=== PATIENT | female | born 2000 | race Caucasian/White ===

== ENCOUNTER 2019-11-21 07:01 | Emergency (ER) | payer OTHER, SELFPAY ==
[2019-11-21 07:05] VITALS: BP 107/62; PULSE 77; RESP 14; TEMP 36.9; O2SAT 98; BMI 27.4
--- NOTE | 2019-11-21 07:27 | DI.US.S_ITS ---
PROCEDURE: US OB LIMITED INDICATIONS: CRAMPING, SPOTTING OUTSIDE/PRIOR DATING DATA: Last menstrual period (LMP): 07/18/19. LMP-based estimated date of delivery (GI): 04/23/20. First dating scan (date and location): 11/21/19, this study. Estimated date of delivery (GI) from first dating scan: 04/28/20. TECHNIQUE: Real-time scanning was performed of the fetus, with image documentation. Endovaginal scanning: Not needed. COMPARISON: None. FINDINGS: A single living intrauterine gestation is present. Presentation: Breech. Placenta: Placental position is posterior, without previa. Amniotic fluid index: 13.6 cm, normal range is 5-24 cm. heart rate: 147 beats per minute. Maternal cervical canal: 3.1 cm long. Normal lower limit is 2.5 cm. Estimated gestational age from this scan: BPD is 3.8 cm which correlates with a gestational age of 17 weeks 4 days, and the head circumference is 14.0 cm correlated with 17 weeks 2 days. The abdominal circumference measures up to 12.4 cm, correlated with a gestational age of 18 weeks 0 days, and the femur length of 2.2 cm correlates with 16 weeks 3 day gestational age. The composite gestational age from today's 17 weeks 2 days and estimated weight is 190 g, at the 12th percentile. IMPRESSION: Single living intrauterine gestation with no evidence of placental abruption or placenta previa. No perigestational hemorrhage is found. Followup anatomic survey at 20 weeks gestation is recommended. Dictated by: Jered Chavarria M.D. on 11/21/2019 at 9:00 Approved by: Jered Chavarria M.D. on 11/21/2019 at 9:03
--- NOTE | 2019-11-21 07:32 | ED.FEMALEGU ---
HPI - Female Genitourinary General Chief complaint: Urogenital-Female Stated complaint: spotting/ cramping- 17 weeks preg Time Seen by Provider: 11/21/19 07:21 Source: patient Mode of arrival: Ambulatory Limitations: no limitations History of Present Illness HPI Narrative: The patient is a 19-year-old female who is for the 1st time. She is 17 weeks . She states that she developed spotting and cramping and came into the emergency department to be checked. She denies that she has any other problems or complaints. She denies any fall injury or trauma. She denies any backache. She has dizziness only after she has been lying down for a long period of time and stands up suddenly. She describes her dizziness as being slightly lightheaded. She has had no heavy bleeding no fever chills or sweats. She has nausea and vomiting in the morning. She denies any significant pain or discomfort. She used of a deep but does not drink alcohol. She has had intermittent headaches no nasal drainage sinus congestion or sore throat. She denies any chest pain shortness of breath or cough. She has had no diarrhea change in bowel habits and no urinary symptoms frequency or urgency at this time. Related Data Allergies Allergy/AdvReac Type Severity Reaction Status Date / Time No Known Drug Allergies Allergy Verified 11/21/19 07:29 Review of Systems Review of Systems Narrative: All review of systems were negative except for those mentioned in history of present illness. Patient History alcohol intake frequency: 0-2 drinks per day Substance Use Type: does not use Exam Narrative Exam Narrative: PHYSICAL EXAM: CONSTITUTIONAL: Awake, Alert, Oriented, Coherent, Cooperative in NAD. Does not appear toxic or ill. HEAD: AT/NC EENT: PERRL, FROM of eyes, no discharge, no nystagmus No epistaxis or nasal drainage Oral mucosa is moist and pink, posterior pharynx is without erythema or exudate. NECK: Supple, no obvious JVD, Trachea is midline without stridor, no palpable LN or masses. SPINE: No gross deformity, no palpable tenderness of the cervical, thoracic, lumbar or sacral spine. No CVA tenderness. THORAX: No deformity, retractions, chest wall tenderness, subcutaneous air or crepitice. LUNGS: Clear with symmetrical breath sounds without respiratory distress HEART: Normal heart tones, regular rhythm and rate without murmur. ABDOMEN: Soft, non-tender, normal bowel sounds without guarding, rebound, rigidity or palpable mass or organomegaly. EXTREMITIES: No edema, cyanosis, deformity or tenderness. SKIN: No rash, bruising, petechiae or purpura. NEURO: Awake, alert, oriented, conversive, cranial nerves II-XII are symmetrical and normal, moves all 4 extremities and is ambulatory Initial Vital Signs Initial Vital Signs: Vital Signs Temperature 98.4 F 11/21/19 07:05 Pulse Rate 77 11/21/19 07:05 Respiratory Rate 14 11/21/19 07:05 Blood Pressure 107/62 11/21/19 07:05 Pulse Oximetry 98 11/21/19 07:05 Course Course Course Narrative: 0745 ultrasound reported that the patient has a normal 17 week baby in utero without any problems or complications. There was no abruptio or placenta previa noted. The patient's urine and laboratory chemistries remain pending. 0838: The patient's urine microscopic are pending at this time. 0911 the patient's urine is a non clean catch urine with minimal white blood cells but numerous epithelial cells and no blood seen. The patient will be discharged home to be seen in follow-up by her bonding equipment operator. The patient was told that if she develops increased vaginal bleeding she needs to return to the emergency department or increased abdominal pain. Orders Ordered: ED Orders 11/21/19 07:27 US OB limited Stat 11/21/19 07:52 ABO RH Type Stat Basic Metabolic Panel Stat Complete Blood Count AUTO DIFF Stat HCG Quantitative /Beta subunit Stat 11/21/19 08:19 Urine Microscopic Stat 11/21/19 08:46 Urine Microscopic Stat Vital Signs Vital signs: Vital Signs - 8 hr 11/21/19 07:05 Temperature 98.4 F Pulse Rate 77 Respiratory Rate 14 Blood Pressure 107/62 Pulse Oximetry 98 MDM - Female Genitourinary Lab Data Result diagrams: 11/21/19 07:52 11/21/19 07:52 Labs: Lab Results 11/21/19 11/21/19 11/21/19 Range/Units 07:52 07:52 07:52 WBC 10.1 (4.5-11.0) X10^3/uL RBC 3.67 L (4.0-5.2) X10^6/uL Hgb 10.8 L (12.0-16.0) g/dL Hct 31.1 L (36-46) % MCV 84.7 (80-100) fL MCH 29.5 (26-34) PG MCHC 34.9 (30-36) % RDW 13.7 (11.6-14.8) % Plt Count 229 (150-400) X10^3/uL Neut % (Auto) 71.0 (50-75) % Lymph % (Auto) 20.1 L (25-40) % [place] % (Auto) 7.0 (3-14) % Eos % (Auto) 0.8 L (2-4) % Baso % (Auto) 1.1 (0-2) % Neut # (Auto) 7200 H (3978-5543) /uL Lymph # (Auto) 2000 (7433-9379) /uL [place] # (Auto) 700 (0-900) /uL Eos # (Auto) 100 (0-450) /uL Baso # (Auto) 100 (0-100) /uL Sodium 137 (137-145) mmol/L Potassium 3.3 L (3.4-5.1) mmol/L Chloride 106 (98-107) mmol/L Carbon Dioxide 22 (22-32) mmol/L BUN 8 (7-17) mg/dL Creatinine 0.50 L (0.52-1.04) mg/dL Estimated GFR > 60.0 (>60) mL/min BUN/Creatinine Ratio 16.0 (6-22) Glucose 92 (70-100) mg/dL Calcium 9.2 (8.4-10.2) mg/dL HCG, Quant 21448 mIU/mL Urine RBC (0-5/HPF) Urine WBC (0-5/HPF) Ur Squamous Epith Cells (0-5/HPF) Urine Bacteria (None) Ur Culture Indicated? Blood Type O Positive 11/21/19 Range/Units 08:19 WBC (4.5-11.0) X10^3/uL RBC (4.0-5.2) X10^6/uL Hgb (12.0-16.0) g/dL Hct (36-46) % MCV (80-100) fL MCH (26-34) PG MCHC (30-36) % RDW (11.6-14.8) % Plt Count (150-400) X10^3/uL Neut % (Auto) (50-75) % Lymph % (Auto) (25-40) % [place] % (Auto) (3-14) % Eos % (Auto) (2-4) % Baso % (Auto) (0-2) % Neut # (Auto) (7147-3668) /uL Lymph # (Auto) (1929-6965) /uL [place] # (Auto) (0-900) /uL Eos # (Auto) (0-450) /uL Baso # (Auto) (0-100) /uL Sodium (137-145) mmol/L Potassium (3.4-5.1) mmol/L Chloride (98-107) mmol/L Carbon Dioxide (22-32) mmol/L BUN (7-17) mg/dL Creatinine (0.52-1.04) mg/dL Estimated GFR (>60) mL/min BUN/Creatinine Ratio (6-22) Glucose (70-100) mg/dL Calcium (8.4-10.2) mg/dL HCG, Quant mIU/mL Urine RBC None seen (0-5/HPF) Urine WBC 1-5/hpf (0-5/HPF) Ur Squamous Epith Cells 10-30 /hpf H (0-5/HPF) Urine Bacteria Few (2-10) H (None) Ur Culture Indicated? Cult not indicated Blood Type Point of Care Testing Test Results Positive Urine Dip Bedside Urine Glucose Negative Bedside Urine Bilirubin - Negative Bedside Urine Ketone - Negative Urine Specific [place] 1.025 Bedside Urine Occult Blood - Negative Bedside Urine pH 6.0 Bedside Urine Protein +/- 15 Bedside Urine Urobilinogen +/- 1mg Bedside Urine Nitrite - Negative Bedside Urine Leukocytes +/- 15 Esterase Discharge Plan Departure Patient Disposition: Home Clinical Impression: Vaginal bleeding before 22 weeks gestation Discharge Date/Time: 11/21/19 09:31 Instructions: DI for Vaginal Bleeding During Activity Restrictions/Additional Instructions: You're having vaginal spotting. There's no active bleeding at this time. Your ultrasound shows a normal 17 week baby without any evidence of placental abnormality causing bleeding. You need to follow-up with your bonding equipment operator and if you develop worsening abdominal cramps fever vaginal bleeding you need to return to the emergency department otherwise need to follow up with your for bonding equipment operator. For pain and discomfort you can take Tylenol.
[2019-11-21 08:06] LABS: Add Manual Diff / Slide Review NO; Basophils Absolute Auto 100 /uL (0-100); Basophils Percent Auto 1.1 % (0-2); Eosinophils Absolute Auto 100 /uL (0-450); Eosinophils Percent Auto 0.8 % (2-4); Hematocrit 31.1 % (36-46); Hemoglobin 10.8 g/dL (12.0-16.0); Lymphocytes Absolute Auto 2000 /uL (1100-4500); Lymphocytes Percent Auto 20.1 % (25-40); Mean Corpuscular HGB Conc 34.9 % (30-36); Mean Corpuscular Hemoglobin 29.5 PG (26-34); Mean Corpuscular Volume 84.7 fL (80-100); Monocytes Absolute Auto 700 /uL (0-900); Neutrophils Absolute Auto 7200 /uL (1500-7000); Platelet Count 229 X10^3/uL (150-400); Red Blood Cell Count 3.67 X10^6/uL (4.0-5.2); Red Cell Distribution Width 13.7 % (11.6-14.8); White Blood Cell Count 10.1 X10^3/uL (4.5-11.0)
[2019-11-21 08:13] LABS: Blood Urea Nitrogen 8 mg/dL (7-17); Calcium 9.2 mg/dL (8.4-10.2); Carbon Dioxide 22 mmol/L (22-32); Chloride 106 mmol/L (98-107); Estimated Glomerular Filt Rate > 60.0 mL/min (>60); Glucose 92 mg/dL (70-100); HEMOLYSIS < 15 (0-50); Potassium 3.3 mmol/L (3.4-5.1); Sodium 137 mmol/L (137-145)
[2019-11-21 08:30] LABS: RBC Urine None Seen (0-5/HPF)
[2019-11-21 08:37] LABS: Bacteria Urine Few (2-10); Culture Indicated Urine Cult Not Indicated; Squamous Epithelial Cell Urine 10-30 /HPF (0-5/HPF); WBC Urine 1-5/HPF (0-5/HPF)
[2019-11-21 08:55] LABS: HCG Quantitative /Beta subunit 22926 mIU/mL
[2019-11-21 09:24] VITALS: BP 117/57; PULSE 81; RESP 16; O2SAT 98
== END 2019-11-21 09:31 | disposition home or self-care (01) ==
PROVIDERS: Emergency Provider Emergency Medicine
DX: O20.9 Hemorrhage in early pregnancy, unspecified (principal); Z3A.17 17 weeks gestation of pregnancy
CPT/HCPCS: 36415; 76815; 80048; 81003; 81015; 81025; 84702; 85025; 86900; 86901; 99282; 99284

== ENCOUNTER 2019-12-11 16:31 | Emergency (ER) | payer OTHER, SELFPAY ==
[2019-12-11 16:42] VITALS: BP 112/61; PULSE 74; RESP 18; TEMP 37.4; O2SAT 98; BMI 28.9
== END 2019-12-11 19:50 | disposition left against medical advice (07) ==
PROVIDERS: Emergency Provider Emergency Medicine
CPT/HCPCS: 99282

== ENCOUNTER → 2020-02-29 13:28 | Outpatient (CLI) | payer OTHER, SELFPAY ==
[2020-02-29 15:03] LABS: Hematocrit 31.1 % (36-46); Hemoglobin 11.1 g/dL (12.0-16.0)
[2020-02-29 16:19] LABS: GTT (PREG) 1 Hour PP 50gm Dose 139 mg/dL (76-139)
== END ==
PROVIDERS: PCP Family Medicine; Referring Provider Family Medicine; Visit Provider Family Medicine
DX: Z34.90 Encounter for supervision of normal pregnancy, unspecified, unspecified trimester (principal)
CPT/HCPCS: 36415; 82950; 85014; 85018; 86850; 86900; 86901

== ENCOUNTER → 2020-03-26 15:19 | Outpatient (CLI) | payer OTHER, SELFPAY | PROVIDERS: PCP Family Medicine; Visit Provider Family Medicine | DX: Z34.03 Encounter for supervision of normal first pregnancy, third trimester (principal); Z3A.34 34 weeks gestation of pregnancy | CPT/HCPCS: 87086 ==

== ENCOUNTER → 2020-04-09 12:16 | Outpatient (CLI) | payer OTHER, SELFPAY ==
[2020-04-10 15:09] LABS: Strep Grp B PCR NEG for Grp B Strep
== END ==
PROVIDERS: PCP Family Medicine; Visit Provider Family Medicine
DX: Z34.03 Encounter for supervision of normal first pregnancy, third trimester (principal); Z3A.36 36 weeks gestation of pregnancy
CPT/HCPCS: 87653

== ENCOUNTER → 2020-04-10 12:54 | Outpatient (CLI) | payer OTHER, SELFPAY ==
--- NOTE | 2020-04-10 12:56 | DI.US.S_ITS ---
PROCEDURE: US OB LIMITED INDICATIONS: DECREASED SIZE FOR DATES OUTSIDE/PRIOR DATING DATA: Last menstrual period (LMP): 07/18/19. LMP-based estimated date of delivery (GI): 04/23/20. First dating scan (date and location): 11/21/19, this study. Estimated date of delivery (GI) from first dating scan: 04/28/20. TECHNIQUE: Real-time scanning was performed of the fetus, with image documentation and biometric measurements. Endovaginal scanning: No COMPARISON: [facility], OB LIMITED, 11/21/2019, 7:42. FINDINGS: General: A single living intrauterine gestation is present. Presentation: Vertex Placenta: Placental position is posterior, without previa. Amniotic fluid index: 13.9 cm, normal range is 5-24 cm. heart rate: 140 beats per minute. Maternal cervical canal: Not well-seen. biometrics: Biparietal diameter: 37 weeks 1 day Head circumference: 37 weeks 2 days Abdominal circumference: 35 weeks Femur length: 36 weeks 1 day Estimated gestational age from initial scan: 37 weeks 3 days Composite gestational age from present scan: 36 weeks 3 days Estimated weight and percentile: 2767 g; 19 percentile Measurement variability for biometric dating: +/- 7 days from 14 weeks to 15 weeks 6 days gestation, +/- 10 days from 16 weeks to 21 weeks 6 days gestation, +/- 2 weeks from 22 weeks to 27 weeks 6 days gestation, +/- 3 weeks for 28 weeks gestation or later. weight reference: 4500 g or EFW >90/95% is considered macrosomia or large for gestational age. EFW <10% is small for gestational age. EFW 5% or less is considered intra-uterine growth restriction. Other: Not applicable. IMPRESSION: Single living IUP redemonstrated and interval growth is normal. Dictated by: Cheikh Bell [facility] Interpreted: Kenneth Hartman MD on 04/10/2020 at 16:19 Approved by: Kenneth Hartman M.D. on 04/10/2020 at 17:21
== END ==
PROVIDERS: PCP Family Medicine; Referring Provider Family Medicine; Visit Provider Family Medicine
DX: Z36.4 Encounter for antenatal screening for fetal growth retardation (principal); Z3A.36 36 weeks gestation of pregnancy
CPT/HCPCS: 76815

== ENCOUNTER 2020-04-16 14:29 | Outpatient (CLI) | payer OTHER, SELFPAY ==
--- NOTE | 2020-04-16 15:16 | P.TNLD_ITS ---
Visit Information Visit Information Date of evaluation: 04/16/20 Primary OB Provider: Bernardino Funez Reason for Evaluation: Yes non-stress test non-stress test reason: other (HR 110s in clinic with audible decel) [facility] Medical History (Updated 04/16/20 @ 15:17 by Davida Carr MD) No known health problems (Acute) Family History Father No problems noted. Mother No problems noted. Grandfather Murder Grandmother Unknown whether patient has any health problems Grandfather Unknown whether patient has any health problems Grandmother Unknown whether patient has any health problems Social History marital status: details: Catarino Briceño [phone] household members: spouse lives independently: Yes pets and animals: Yes (dog) education level: high school occupational status: employed current occupational exposures/hazards: No special leisa needs: No do you feel safe at home: Yes Smoking Status: Never smoker second hand exposure: No alcohol intake: never substance use type: does not use Type(s) of exercise: walking Evaluation Evaluation Baseline heart rate: 130 Variability: Moderate (11-25) monitor accelerations: Present monitor decelerations: Absent Diagnosis, Plan/Disposition Final Diagnosis (1) Non-reassuring heart rate or rhythm affecting management of fetus: Status: Acute Plan/Disposition Plan: FHT reassuring with reactive NST and no decels. Safe for d/c home. OB Disposition: home
== END 2020-04-16 15:17 | disposition home or self-care (01) ==
LOC: OB 04-19 13:02
PROVIDERS: PCP Family Medicine; Referring Provider Family Medicine; Visit Provider Family Medicine
DX: O36.8330 Maternal care for abnormalities of the fetal heart rate or rhythm, third trimester, not applicable or unspecified (principal); Z3A.37 37 weeks gestation of pregnancy
CPT/HCPCS: 59025; G0378; G0379

== ENCOUNTER 2020-05-01 15:07 | Outpatient (CLI) | payer OTHER, SELFPAY ==
--- NOTE | 2020-05-01 15:15 | DI.US.S_ITS ---
PROCEDURE: US OB BIOPHYSICAL PROFILE INDICATIONS: MEASURING SMALL OUTSIDE/PRIOR DATING DATA: Last menstrual period (LMP): 07/18/19. LMP-based estimated date of delivery (GI): 04/23/20. First dating scan (date and location): 11/21/19. Estimated date of delivery (GI) from first dating scan: 04/28/20. TECHNIQUE: Real-time scanning was performed of the fetus for biophysical profile, with image documentation. Color and pulse Doppler interrogation was also performed of the umbilical artery near its insertion into the placenta. Endovaginal scanning: Not needed for this study COMPARISON: None. FINDINGS: General: A single living intrauterine gestation is present. Presentation: Vertex. Placenta: Placental position is posterior, without previa. Amniotic fluid index: 9.8 cm, normal range is 5-24 cm. heart rate: 130 beats per minute. Maternal cervical canal: 2.8 cm long. Normal lower limit is 2.5 cm. Biophysical profile: Tone: 2 points. Movement: 2 points. Respiration: 2 points. Largest pocket of fluid: 2 points. IMPRESSION: Single living intrauterine gestation, vertex presentation, with posterior placenta and a normal biophysical profile was performed yielding 8 of 8 possible points. The delivery date has been projected to be centered on 04/28/20-term gestation. Dictated by: Jered Chavarria M.D. on 05/01/2020 at 16:50 Approved by: Jered Chavarria M.D. on 05/01/2020 at 16:53
--- NOTE | 2020-05-01 16:44 | P.TNLD_ITS ---
Visit Information Visit Information Date of evaluation: 05/01/20 Primary OB Provider: Barry Johnson Reason for Evaluation: Yes non-stress test [facility] Medical History (Updated 04/16/20 @ 15:17 by Davida Carr MD) No known health problems (Acute) Family History Father No problems noted. Mother No problems noted. Grandfather Murder Grandmother Unknown whether patient has any health problems Grandfather Unknown whether patient has any health problems Grandmother Unknown whether patient has any health problems Social History marital status: details: Catarino Briceño [phone] household members: spouse lives independently: Yes pets and animals: Yes (dog) education level: high school occupational status: employed current occupational exposures/hazards: No special leisa needs: No do you feel safe at home: Yes Smoking Status: Never smoker second hand exposure: No alcohol intake: never substance use type: does not use Type(s) of exercise: walking Diagnosis, Plan/Disposition Plan/Disposition Plan: G1 para 0 at 40 weeks. Sent over from the office because of decreased size for dates. ultrasound done for biophysical profile was 8/8. Amniotic fluid index was 10. Patient's NST was reactive and reassuring. Patient provided with this information. Will continue to monitor closely and go from there. She will have an appointment here to see me in 1 week.
== END 2020-05-01 16:40 | disposition home or self-care (01) ==
LOC: LABOR 15:57 → OB 05-02 14:47
PROVIDERS: PCP Family Medicine; Referring Provider Family Medicine; Visit Provider Family Medicine
DX: O36.5930 Maternal care for other known or suspected poor fetal growth, third trimester, not applicable or unspecified (principal); Z3A.40 40 weeks gestation of pregnancy
CPT/HCPCS: 59025; 59050; 76819; G0378; G0379

== ENCOUNTER 2020-05-07 14:32 | Outpatient (CLI) | payer OTHER, SELFPAY ==
--- NOTE | 2020-05-07 15:04 | PM.OBTRLD ---
Visit Information Visit Information Date of evaluation: 05/07/20 Primary OB Provider: Barry Johnson Reason for Evaluation: Yes non-stress test Comments/Additional reasons for admission: 19-year-old G1 para 041 weeks gestational age for NST. NST is reactive vital signs are stable. Patient on schedule for induction later this week. [facility] Medical History (Updated 04/16/20 @ 15:17 by Davida Carr MD) No known health problems (Acute) Family History Father No problems noted. Mother No problems noted. Grandfather Murder Grandmother Unknown whether patient has any health problems Grandfather Unknown whether patient has any health problems Grandmother Unknown whether patient has any health problems Social History marital status: details: Catarino Briceño [phone] household members: spouse lives independently: Yes pets and animals: Yes (dog) education level: high school occupational status: employed current occupational exposures/hazards: No special leisa needs: No do you feel safe at home: Yes Smoking Status: Never smoker second hand exposure: No alcohol intake: never substance use type: does not use Type(s) of exercise: walking Diagnosis, Plan/Disposition Plan/Disposition Plan: Forty-one week age infant here for NST with mom. NST is reactive. Doing well. Patient on schedule for induction later this week. OB Disposition: home
== END 2020-05-07 15:11 | disposition home or self-care (01) ==
LOC: LABOR 14:40 → OB 05-08 14:02
PROVIDERS: PCP Family Medicine; Referring Provider Family Medicine; Visit Provider Family Medicine
DX: O48.0 Post-term pregnancy (principal); Z3A.41 41 weeks gestation of pregnancy
CPT/HCPCS: 59025; G0378; G0379

== ENCOUNTER 2020-05-10 18:08 | Inpatient (IN) | payer OTHER, SELFPAY ==
[2020-05-10] MEDS: miSOPROStoL 25 MCG TABLET VAG (19:22)
[2020-05-10 19:56] VITALS: BP 127/75
[2020-05-10 20:02] LABS: Add Manual Diff / Slide Review NO; Basophils Absolute Auto 100 /uL (0-100); Basophils Percent Auto 1.3 % (0-2); Eosinophils Absolute Auto 100 /uL (0-450); Eosinophils Percent Auto 0.7 % (2-4); Hematocrit 34.3 % (36-46); Lymphocytes Absolute Auto 1900 /uL (1100-4500); Lymphocytes Percent Auto 19.2 % (25-40); Mean Corpuscular Hemoglobin 30.2 PG (26-34); Mean Corpuscular Volume 86.3 fL (80-100); Monocytes Absolute Auto 600 /uL (0-900); Monocytes Percent Auto 5.5 % (3-14); Neutrophils Absolute Auto 7300 /uL (1500-7000); Neutrophils Percent Auto 73.3 % (50-75); Platelet Count 166 X10^3/uL (150-400); Red Blood Cell Count 3.97 X10^6/uL (4.0-5.2)
[2020-05-10 20:04] LABS: COVID19 -Nasal RAPID Negative (Negative)
--- NOTE | 2020-05-11 07:38 | PM.OBHP.1 ---
OB HPI Date/Time Date of admission: 05/10/20 Date Patient Seen: 05/11/20 Time Patient Seen: 07:25 History of Present Condition Chief complaint: Obs : 1 Para: 0 Estimated Date of Delivery: 05/01/20 Estimated Gestational Age (weeks): 41w3d Narrative: Xiao Briceño is a 19 year old at 41 weeks and 3 days here for postdates induction. She came in last night and received one dose of Cytotec but was maria dolores too frequently for subsequent doses the rest of the night. This morning she feels cramping. Denies leaking or bleeding and reports good movement. Patient transferred care from the [facility] at 28 weeks. was complicated by a borderline nuchal translucency on second trimester US. She was seen by MFM and had a normal quad screen and reassuring follow up US. No further work up recommended. otherwise uncomplicated. is in the [place] and away on a boat until next year. Indications Indication for induction OB: post dates History of Present care: good care, initiated at week # (8) and pounds weight gain (25) Dating criteria: based on 1st trimester US only Ultrasounds: abnormal US findings (Borderline nuchal translucency, seen by MFM, normal quad, no further work up. Subsequent imaging normal. ) Obstetrical complications: none Medical complications: none Preadmission Labs Blood type: O (+) positive -: Antibody screen: negative, Cystic fibrosis screen: negative, GBS status: negative, HBsAG: negative, HIV: negative and RPR/VDLR: negative -: Chlamydia screen: not detected and Gonorrhea screen: not detected -: Rubella: immune and Varicella: not immune HCT: 33.8 HCAB: negative Quad screen: Normal Urine: Negative 1 hr GTT: 122 Evaluation Evaluation Baseline heart rate: 130 Variability: Moderate (11-25) monitor accelerations: Present monitor decelerations: Late Uterine Contraction Intensity: Mild Category of Tracing: II Cervical dilation (cm): 2 Cervical effacement (%): 80 station: -2 Laboratory results: Laboratory Tests 05/10/20 05/10/20 05/10/20 19:00 19:10 19:40 WBC 10.0 RBC 3.97 L Hgb 12.0 Hct 34.3 L MCV 86.3 MCH 30.2 MCHC 35.0 RDW 14.0 Plt Count 166 Neut % (Auto) 73.3 Lymph % (Auto) 19.2 L [place] % (Auto) 5.5 Eos % (Auto) 0.7 L Baso % (Auto) 1.3 Neut # (Auto) 7300 H Lymph # (Auto) 1900 [place] # (Auto) 600 Eos # (Auto) 100 Baso # (Auto) 100 COVID-19 PCR Negative Blood Type O Positive Antibody Screen Negative [facility] Medical History No known health problems (Acute) Family History Father No problems noted. Mother No problems noted. Grandfather Murder Grandmother Unknown whether patient has any health problems Grandfather Unknown whether patient has any health problems Grandmother Unknown whether patient has any health problems Social History marital status: details: Catarino Briceño [phone] household members: spouse lives independently: Yes pets and animals: Yes (dog) education level: high school occupational status: employed current occupational exposures/hazards: No special leisa needs: No do you feel safe at home: Yes Smoking Status: Never smoker second hand exposure: No alcohol intake: never substance use type: does not use Type(s) of exercise: walking Meds Home Medications and Allergies Home Medications Medication Instructions Recorded Confirmed Type prenat.vits,chata,vtn-opap-rbbfp 1 tab PO DAILY 02/06/20 05/10/20 History Allergies Allergy/AdvReac Type Severity Reaction Status Date / Time No Known Drug Allergies Allergy Verified 05/07/20 13:57 Review of Systems Review of Systems ROS: Yes All systems reviewed with the patient and are negative except as otherwise documented Exam Vital Signs (past 8 hours): Temperature 36.5? blood pressure 142/88 heart rate 64 Const General: healthy appearing and comfortable [facility] Head: normal to inspection Ears: hearing grossly normal bilaterally Nose: external nose normal Face and sinus: normal facial exam Mouth: oral mucosae normal Eyes General: appearance normal, both eyes and all related structures Neck Neck: normal visual inspection Resp Effort & Inspection: normal respiratory effort Auscultation: clear to auscultation bilaterally Cardio Rate: regular rate Rhythm: regular rhythm Heart Sounds: no murmurs GI Other: Gravid External Female Exam: normal external appearance Manual OB Exam: dilated 2, effaced 75% and station -2 Presentation: vertex Estimated Weight (lbs): 7 Back/Spine/Pelvis Back: normal to inspection Skin General: no rashes or lesions noted Extrem General: normal to inspection and no pedal edema Objective Labs Result Diagrams: 05/10/20 19:40 Labs: Laboratory Results - last 24 hr 05/10/20 05/10/20 05/10/20 19:00 19:10 19:40 WBC 10.0 RBC 3.97 L Hgb 12.0 Hct 34.3 L MCV 86.3 MCH 30.2 MCHC 35.0 RDW 14.0 Plt Count 166 Neut % (Auto) 73.3 Lymph % (Auto) 19.2 L [place] % (Auto) 5.5 Eos % (Auto) 0.7 L Baso % (Auto) 1.3 Neut # (Auto) 7300 H Lymph # (Auto) 1900 [place] # (Auto) 600 Eos # (Auto) 100 Baso # (Auto) 100 COVID-19 PCR Negative Blood Type O Positive Antibody Screen Negative Assessment and Plan Assessment and Plan Assessment and Plan narrative: 19 year old at 41 weeks and 3 days gestation here for IOL for postdates. Received one dose of Cytotec overnight. SVE 2/80/-2 with Figueroa score of 7 this morning. Patient is maria dolores spontaneously over 5 minutes. There was a 90 second deceleration immediately following cervical exam which resolved position change. Plan - Pitocin per protocol - No indication for GBS prophylaxis - Epidural upon request
[2020-05-11] MEDS: LACTATED RINGERS 1,000 ML 100 ML IV ×3 (08:38→14:28)
[2020-05-11] MEDS: OXYTOCIN PREMIX 30 UNIT/500 ML PLAST..BAG IV (08:38)
[2020-05-11] MEDS: FENT 2MCG/ML BUPIV 0.125% EPI 200 MCG/100 ML PLAST..BAG 8 MCG EPIDURAL (13:14)
--- NOTE | 2020-05-11 13:36 | PM.OBPNLAB ---
Date/Time Date Patient Seen: 05/11/20 Time Patient Seen: 13:30 Pain Control Pain control: epidural Comments: Getting comfortable with epidural. Had leaking prior to contractions increasing in intensity about 45 min ago. Pelvic Exam Dilation (cm): 4 Effacement (%): 90 station: -1 Amniotic membrane status: Leaking Contractions Pitocin rate (mU/min): 4 Contraction frequency (min): 4 Contraction pattern: Regular Contraction intensity: Strong/Firm Status status: Category ll Heart Rate Baseline: 140 Monitor Accelerations: Present Monitor Decelerations: Early (Early and variable) Monitor Variability: Moderate Assessment and Plan Assessment: active labor Plan: continuous present management Comments: Continue pitocin. Comfortable with epidural.
--- NOTE | 2020-05-11 15:00 | PM.OBPNLAB ---
Date/Time Date Patient Seen: 05/11/20 Time Patient Seen: 02:50 Pain Control Pain control: tolerating well Pelvic Exam Dilation (cm): 5 Effacement (%): 100 station: -1 Amniotic membrane status: Leaking Contractions Pitocin rate (mU/min): 4 Contraction frequency (min): 4 Contraction pattern: Regular Contraction intensity: Strong/Firm Status status: Category ll Heart Rate Baseline: 145 Monitor Accelerations: Absent Monitor Decelerations: Variable (Recurrent) Monitor Variability: Moderate Assessment and Plan Assessment: active labor Plan: continuous present management Comments: IUPC placed for amnioinfusion due to recurrent variables. Discussed possible need for if variables do not improve. Suspect OT position of fetus. Encouraged frequent position changes if tolerated.
--- NOTE | 2020-05-11 17:01 | PM.OBPNLAB ---
Date/Time Date Patient Seen: 05/11/20 Time Patient Seen: 17:02 Pain Control Pain control: tolerating well and epidural Pelvic Exam Dilation (cm): 6 Effacement (%): 100 station: -1 Amniotic membrane status: Leaking Contractions Pitocin rate (mU/min): 6 Contraction frequency (min): 3 Contraction pattern: Regular Contraction intensity: Strong/Firm Intrauterine tone measurement: 175 Status status: Category ll Heart Rate Baseline: 130 Monitor Accelerations: Present Monitor Decelerations: Early Monitor Variability: Moderate Assessment and Plan Assessment: induction ongoing Plan: continuous present management Comments: Variables improved with amnioinfusion and patient is making cervical change. Will continue pitocin and re-evaluate in 2 hours or sooner if needed. MVU 175-200. Titrate pitocin as able.
--- NOTE | 2020-05-11 19:57 | P.PCNOB_ITS ---
Labor & Delivery Delivery date: 05/11/20 Cervical ripening method: per misoprostal protocol Induction method: per pitocin protocol Delivery monitor: external FHT and internal uterine Route of delivery: L&D Laceration Description: Periurethral - 1st Degree and Perineal - 1st Degree Delivery repair: vicryl Estimated blood loss (mL): 300 Anesthesia type: Epidural Narrative: Patient is a 19-year-old at 41 weeks and 3 days gestation who gave on 05/11/20 at 7:21 PM. GI: 05/01/20 STAGE I: Labor Patient was brought in the night of 05/10/20 for post-dates induction. She received 1 dose of Cytotec then was maria dolores on her own. The morning of 05/11/20 she started Pitocin per protocol. Spontaneous rupture membranes occurred at 12:28 with a small amount of clear fluid. Patient received an epidural with adequate pain control. There were recurrent variable decelerations throughout stage I that did not resolve with position change or IV fluid bolus.. The decision was made to place an IUPC for amnioinfusion when patient was 5 cm. Variables resolved after amnioinfusion. Patient was continued on Pitocin and progressed to complete at 18:56. Pain well controlled with epidural throughout stage I. STAGE II: Delivery Patient was complete and pushed over 2 contractions to deliver a vigorous male at 7:21 p.m.. Infant was vertex and CLAUDIA. There was terminal meconium. After delivery was immediately placed on mother's abdomen. Cord was clamped and cut after 1 minute delay. Apgars were 9 and 9. No resuscitation of the required. STAGE III: Placenta/Cord Placenta delivered at 19:28 after active management and appeared intact with a three-vessel cord. Pitocin bolus given after delivery of placenta. New first degree periurethral laceration was repaired with 4-0 Vicryl in the usual fashion. A first degree perineal laceration was repaired as well. Fundus was firm well below the umbilicus after delivery. EBL: 300 mL. Needle and sponge counts were correct. The vagina was inspected and no items were left in situ. Patient was doing well with Fernando, her and mother at bedside. [place] Baby 1: Infant gender: Male Presentation: vertex Placenta delivery description: Spontaneous cord vessel description: 3 Vessels score (1 min): 9 score (5 min): 9
[2020-05-11] MEDS: IBUPROFEN 600 MG TABLET PO (21:17)
[2020-05-12 06:11] LABS: Hematocrit 31.4 % (36-46); Hemoglobin 10.7 g/dL (12.0-16.0)
[2020-05-12] MEDS: IBUPROFEN 600 MG TABLET PO (09:21)
[2020-05-12] MEDS: DOCUSATE 100 MG CAPSULE PO (09:22)
[2020-05-12] MEDS: PRENATAL VIT,CALC/IRON/FOLIC 1 TABLET 1 TAB PO (09:22)
--- NOTE | 2020-05-12 09:56 | P.DS_ITS ---
Discharge Providers Provider Date of admission: 05/10/20 18:08 Discharge Date: 05/12/20 Primary care physician: Kristian Baker Consults: 05/12/20 19:[address] to [address] Packer Operator Routine Comment: Discharge provider: Mima Munoz DO Summary Hospital Course Date Patient Seen: 05/12/20 Time Patient Seen: 09:15 Procedures: Spontaneous vaginal delivery Epidural analgesia Hospital Course: Patient is a 27-year-old after spontaneous vaginal delivery on 05/11/20 at 41 weeks and 3 days gestation. Patient came in for post-dates induction and progressed after Cytotec and Pitocin. Patient received an epidural with excellent pain control. Labor was complicated by recurrent variable decelerations which resolved with amnio infusion. Delivery was uncomplicated and she delivered a vigorous male over 2 contractions. A first degree periurethral laceration and first-degree perineal laceration were repaired with good hemostasis. patient did very well. Bleeding was light to moderate. Pain controlled with ibuprofen. Patient was eating, ambulating, voiding and passing flatus. She wishes to bottle feed. Infant was doing very well without concerns. Patient was advised to call for fevers, severe pain or bleeding through more than a pad an hour. She will follow up in clinic Dr. Johnson in 6 weeks. Peripartum Data Delivery Method: Natural Vaginal Laceration description: Periurethral - 1st Degree complications: none 1: Gender: Male Disposition of : home Discharge Diagnosis (1) Spontaneous vaginal delivery: Status: Acute (2) 41 weeks gestation of : Status: Acute Status at Discharge Functional status at discharge: independent ambulation Overall status at discharge: patient is progressing back to baseline Time Spent with Patient Time attestation: Total time spent providing and/or coordinating discharge servi edward: Time spent: Less than 30 minutes Objective Labs Result Diagrams: 05/12/20 06:00 Labs: Laboratory Results - last 24 hr 05/12/20 06:00 Hgb 10.7 L Hct 31.4 L Exam Vital Signs (past 8 hours): Temperature 99.6? blood pressure 133/86 heart rate 80 respirations 17 Narrative Exam Narrative: General: Awake and alert, no acute distress. HEENT: NCAT, EOMI, moist oral mucosa CV: Regular rate and rhythm, no murmurs, rubs or gallops Lungs: CTAB, no wheezes, rales, or rhonchi Abdomen: Soft, nontender; bowel tones active; uterus firm 1 cm below umbilicus Extremities: Warm, no edema, 2+ pedal pulses bilaterally Discharge Plan Discharge Plan Patient Disposition: Home Discharge comment: Patient advised to call for fevers, severe pain or bleeding through more than a pad an hour. Discharge orders & Medications Prescriptions: New docusate sodium [DOK] 100 mg Capsule 100 mg PO DAILY Qty: 30 RF: 0 ibuprofen 600 mg Tablet 600 mg PO Q6HR PRN (Reason: Pain, Mild (1-3)) Qty: 30 RF: 0 Continued prenat.vits,chata,[id number] Tablet 1 tab PO DAILY RF: 0 Follow up/Referrals: Barry Johnson MD [Physician] - 6 Weeks Kristian Baker [Primary Care Provider] - Visit Report/Discharge Packet Visit Report Forms: Patient Portal/API, Stroke Signs & Symptoms Discharge Data Primary Care Provider: Kristian Baker Attending Provider: Mima Munoz Admit Date/Time: 05/10/20 18:08
[2020-05-12 21:10] VITALS: BP 127/75; PULSE 72; RESP 18; TEMP 36.9
== END 2020-05-12 21:42 | disposition home or self-care (01) | DRG 807 ==
PROVIDERS: Admitting Provider Family Medicine; PCP Family Medicine; Referring Provider Family Medicine; Visit Provider Family Medicine
DX: O48.0 Post-term pregnancy (principal); Z37.0 Single live birth; Z3A.41 41 weeks gestation of pregnancy; O71.82 Other specified trauma to perineum and vulva; O70.0 First degree perineal laceration during delivery; O76 Abnormality in fetal heart rate and rhythm complicating labor and delivery; O77.0 Labor and delivery complicated by meconium in amniotic fluid; Z11.59 Encounter for screening for other viral diseases
CPT/HCPCS: 01967; 36415; 59050; 59200; 59410; 85014; 85018; 85025; 86850; 86900; 86901; 87635; G0379; J2590

== ENCOUNTER 2020-05-19 08:29 | Emergency (ER) | payer OTHER, SELFPAY ==
[2020-05-19 08:37] VITALS: BP 141/81; PULSE 88; RESP 18; TEMP 37; O2SAT 96; BMI 29.2
--- NOTE | 2020-05-19 09:00 | ED_ITS ---
HPI - Back Pain/Injury General Chief Complaint: Back Pain/Injury Stated Complaint: Intense pain in lower back t-2 Time Seen by Provider: 05/19/20 08:40 Source: patient Limitations: no limitations History of Present Illness HPI Narrative: CC: low back pain HPI: The patient is a 19-year-old female who is 8 days who developed low back pain that started getting worse 4 days ago. She denies any fall or injury. She had a vaginal delivery without complications. She is not having excessive bleeding nor any purulence drainage. She had an epidural injection. She has had no fever chills or sweats. Her pain and discomfort while sitting is approximately 4/10 however when she tries walking it is 7 to 8/10 in intensity. She took ibuprofen 600 mg last night none since then. Her pain is worse with walking and seems to be worse with moving and lifting her left leg. She has had no shooting pain down her legs no numbness or tingling or loss of sensation over her perineum or around her rectum. She has had no urinary retention she has incontinence of urine when walking. She has had no dysuria no diarrhea no rectal pain. She denies any other abdominal pain nausea vomiting diarrhea melena or hematochezia. She has had no urinary urgency or frequency no history of any kidney infections. She has had no fever chills or sweats. She does not smoke cigarettes drink alcohol or use any drugs including marijuana. Related Data Home Medications Medication Instructions Recorded Confirmed prenat.vits,chata,[id number] 1 tab PO DAILY 02/06/20 05/10/20 Previous Rx's Medication Instructions Recorded docusate sodium [DOK] 100 mg PO DAILY #30 cap 05/12/20 ibuprofen 600 mg PO Q6HR PRN #30 tab 05/12/20 cephalexin [Keflex] 500 mg PO TID #15 cap 05/19/20 cyclobenzaprine 10 mg PO TID PRN #15 tab 05/19/20 hydrocodone-acetaminophen [[place]] 1 tab PO Q6H PRN #12 tab 05/19/20 Allergies Allergy/AdvReac Type Severity Reaction Status Date / Time No Known Drug Allergies Allergy Verified 05/19/20 08:36 Review of Systems Review of Systems Narrative: Her review of systems were all negative except for those mentioned in the history of present illness. Patient History Medical History No known health problems (Acute) Family History Father No problems noted. Mother No problems noted. Grandfather Murder Grandmother Unknown whether patient has any health problems Grandfather Unknown whether patient has any health problems Grandmother Unknown whether patient has any health problems Social History marital status: details: Catarino Briceño [phone] household members: spouse lives independently: Yes pets and animals: Yes (dog) education level: high school occupational status: employed current occupational exposures/hazards: No special leisa needs: No do you feel safe at home: Yes Smoking Status: Never smoker second hand exposure: No alcohol intake: never substance use type: does not use Type(s) of exercise: walking Smoking Status: Never smoker alcohol intake frequency: 0-2 drinks per day Substance Use Type: does not use Exam Narrative Exam Narrative: PHYSICAL EXAM: CONSTITUTIONAL: Awake, Alert, Oriented, Coherent, Cooperative in NAD. Does not appear toxic or ill. Patient has difficulty in lifting her legs to a sitting position in the bed. She is able to sit on the edge of the bed. She appears to have difficulty in lifting her legs into the complaining primarily of back pain. HEAD: AT/NC EENT: PERRL, FROM of eyes, no discharge, no nystagmus MOUTH:Oral mucosa is moist and pink, posterior pharynx is without erythema or exudate. Is wearing a mask. NECK: Supple, no obvious JVD, Trachea is midline without stridor, no palpable LN. SPINE: Palpation of the cervical, Thoracic, spine reveals no gross deformity or tenderness. The patient has mild tenderness to palpation over the lower lumbar spine. In about L3-L4 the patient has a single puncture wound without ecchymosis erythema. This area is mildly tender. Her paraspinous muscles over the lower lumbar and sacral area are tender to palpation. There is no tenderness to palpation over the right or left sciatic notches. There appears to be more tenderness on the right SI joint compared to the left. There is no bruising appreciated. No CVA tenderness. The patient with a straight leg is able to completely flex her left leg and hip with the knee extended however complains of pain and discomfort in her back. She can perform the same maneuver on the right with less discomfort in her back. She has symmetrical sensation in both legs. Patellar deep tendon reflexes are 1+. The patient has symmetrical strength to plantar and dorsiflexion of her toes and feet bilaterally. THORAX: No deformity, retractions, chest wall tenderness. LUNGS: Clear, symmetrical breath sounds without respiratory distress. HEART: Normal heart tones, regular rhythm and rate without murmur. ABDOMEN: Soft, no guarding, rebound, rigidity or palpable mass. There is mild suprapubic tenderness over her uterus as expected. EXTREMITIES: No edema, deformity, tenderness or cyanosis. SKIN: No rash, bruising, petechiae or purpura. NEURO: Awake, alert, oriented, conversive, cranial nerves II-XII are symmetrical , moves all 4 extremities and is ambulatory. MENTAL HEALTH: Does not appear anxious or depressed. Initial Vital Signs Initial Vital Signs: Vital Signs Temperature 98.6 F 05/19/20 08:37 Pulse Rate 88 05/19/20 08:37 Respiratory Rate 18 05/19/20 08:37 Blood Pressure 141/81 H 05/19/20 08:37 Pulse Oximetry 96 05/19/20 08:37 Course Course Course Narrative: 1030: No change in pain. will give [place] 7.5/325 Orders Ordered: Discontinued Medications Hydrocodone Bitart/Acetaminophen ([place] 5/325) 2 tab PO NOW ONE Stop: 05/19/20 10:34 Last Admin: 05/19/20 10:53 Dose: 2 tab Documented by: LILA Cephalexin HCl (Keflex) 500 mg PO NOW ONE Stop: 05/19/20 10:08 Last Admin: 05/19/20 10:20 Dose: 500 mg Documented by: LILA Cyclobenzaprine HCl (Flexeril) 10 mg PO NOW ONE Stop: 05/19/20 08:59 Last Admin: 05/19/20 09:12 Dose: 10 mg Documented by: LILA Ketorolac Tromethamine (Toradol) 30 mg IV NOW ONE Stop: 05/19/20 08:59 Last Admin: 05/19/20 09:12 Dose: 30 mg Documented by: LILA Vital Signs Vital signs: Vital Signs - 8 hr 05/19/20 08:37 Temperature 98.6 F Pulse Rate 88 Respiratory Rate 18 Blood Pressure 141/81 H Pulse Oximetry 96 MDM - Back Pain/Injury Medical Records Attestation: I reviewed the patient's medical records. Lab Data Attestation: I reviewed the patient's lab results. Result diagrams: 05/19/20 09:10 05/19/20 09:10 Labs: Lab Results 05/19/20 05/19/20 05/19/20 Range/Units 09:01 09:10 09:10 WBC 8.9 (4.5-11.0) X10^3/uL RBC 4.07 (4.0-5.2) X10^6/uL Hgb 11.7 L (12.0-16.0) g/dL Hct 35.1 L (36-46) % MCV 86.1 (80-100) fL MCH 28.7 (26-34) PG MCHC 33.4 (30-36) % RDW 13.4 (11.6-14.8) % Plt Count 322 (150-400) X10^3/uL Neut % (Auto) 74.3 (50-75) % Lymph % (Auto) 17.3 L (25-40) % [place] % (Auto) 6.0 (3-14) % Eos % (Auto) 1.4 L (2-4) % Baso % (Auto) 1.0 (0-2) % Neut # (Auto) 6600 (7072-7472) /uL Lymph # (Auto) 1500 (2121-8042) /uL [place] # (Auto) 500 (0-900) /uL Eos # (Auto) 100 (0-450) /uL Baso # (Auto) 100 (0-100) /uL ESR 59 H (0-20) MM/HR Sodium 136 L (137-145) mmol/L Potassium 4.2 (3.4-5.1) mmol/L Chloride 106 (98-107) mmol/L Carbon Dioxide 24 (22-32) mmol/L BUN 12 (7-17) mg/dL Creatinine 0.59 (0.52-1.04) mg/dL Estimated GFR > 60.0 (>60) mL/min BUN/Creatinine Ratio 20.3 (6-22) Glucose 97 (70-100) mg/dL Lactate (0.7-2.1) mmol/L Calcium 9.8 (8.4-10.2) mg/dL Total Bilirubin 0.6 (0.2-1.3) mg/dL AST 34 (14-36) IU/L ALT 36 H (<35) IU/L Alkaline Phosphatase 140 H (38-126) U/L Total Creatine Kinase (30-135) U/L C-Reactive Protein 1.8 H (<1.0) mg/dL Total Protein 7.3 (6.3-8.2) g/dL Albumin 4.0 (3.5-5.0) g/dL Globulin 3.3 (1.7-4.1) g/dL Albumin/Globulin Ratio 1.2 (1.0-2.8) Urine Color Yellow Urine Appearance Slightly cloudy Urine pH 6.0 (4.5-8.0) Ur Specific [place] 1.010 (1.000-1.035) Urine Protein 1+ H (Negative) Urine Glucose (UA) Negative (Negative) g/dL Urine Ketones Negative (NEGATIVE) Urine Occult Blood 3+ H (Negative) Urine Nitrate Negative (Negative) Urine Bilirubin Negative (NEGATIVE) Urine Urobilinogen 0.2 (0.2) E.U./dL Ur Leukocyte Esterase 3+ H (NEGATIVE) Urine RBC 10-30/hpf H (0-5/HPF) Urine WBC >100/hpf H (0-5/HPF) Ur Squamous Epith Cells 0-1 /hpf D (0-5/HPF) Urine Bacteria Many (>30) H (None) Ur Culture Indicated? Specimen cultured 05/19/20 05/19/20 Range/Units 09:10 09:10 WBC (4.5-11.0) X10^3/uL RBC (4.0-5.2) X10^6/uL Hgb (12.0-16.0) g/dL Hct (36-46) % MCV (80-100) fL MCH (26-34) PG MCHC (30-36) % RDW (11.6-14.8) % Plt Count (150-400) X10^3/uL Neut % (Auto) (50-75) % Lymph % (Auto) (25-40) % [place] % (Auto) (3-14) % Eos % (Auto) (2-4) % Baso % (Auto) (0-2) % Neut # (Auto) (4098-7318) /uL Lymph # (Auto) (7364-4285) /uL [place] # (Auto) (0-900) /uL Eos # (Auto) (0-450) /uL Baso # (Auto) (0-100) /uL ESR (0-20) MM/HR Sodium (137-145) mmol/L Potassium (3.4-5.1) mmol/L Chloride (98-107) mmol/L Carbon Dioxide (22-32) mmol/L BUN (7-17) mg/dL Creatinine (0.52-1.04) mg/dL Estimated GFR (>60) mL/min BUN/Creatinine Ratio (6-22) Glucose (70-100) mg/dL Lactate 0.5 L (0.7-2.1) mmol/L Calcium (8.4-10.2) mg/dL Total Bilirubin (0.2-1.3) mg/dL AST (14-36) IU/L ALT (<35) IU/L Alkaline Phosphatase (38-126) U/L Total Creatine Kinase 68 (30-135) U/L C-Reactive Protein (<1.0) mg/dL Total Protein (6.3-8.2) g/dL Albumin (3.5-5.0) g/dL Globulin (1.7-4.1) g/dL Albumin/Globulin Ratio (1.0-2.8) Urine Color Urine Appearance Urine pH (4.5-8.0) Ur Specific [place] (1.000-1.035) Urine Protein (Negative) Urine Glucose (UA) (Negative) g/dL Urine Ketones (NEGATIVE) Urine Occult Blood (Negative) Urine Nitrate (Negative) Urine Bilirubin (NEGATIVE) Urine Urobilinogen (0.2) E.U./dL Ur Leukocyte Esterase (NEGATIVE) Urine RBC (0-5/HPF) Urine WBC (0-5/HPF) Ur Squamous Epith Cells (0-5/HPF) Urine Bacteria (None) Ur Culture Indicated? MDM Narrative Medical decision making narrative: Clinically based on the patient's physical exam I believe her pain and discomfort is primarily musculoskeletal in nature. I explained to the patient the process of the evaluation. I stated that we are going to obtain laboratory studies inflammatory markers to rule out the possibility of a urinary tract infection, arm epidural hematoma and abscess as well as endometritis. I explained to the patient that depending on the markers we may need to perform a pelvic exam. Discharge Plan Departure Patient Disposition: Home Clinical Impression: Spontaneous vaginal delivery, Strain of muscle, fascia and tendon of lower back, initial encounter Low back pain Qualifiers: Chronicity: acute Back pain laterality: bilateral Sciatica presence: without sciatica Qualified Code(s): M54.5 - Low back pain UTI (urinary tract infection) following delivery Qualifiers: urinary tract infection type: unspecified infection Qualified Code(s): O86.20 - Urinary tract infection following delivery, unspecified Discharge Date/Time: 05/19/20 11:13 Instructions: DI for Low Back Pain, DI for Urinary Tract Infection (UTI), DI for Back Strain or Sprain Activity Restrictions/Additional Instructions: 1. You need to return to the emergency department or be seen and re-evaluated by your primary care physician or manager inventory control in 48-72 hours. 2. If you develop worsening pain and discomfort in your low back with fever chills or sweats or numbness tingling loss of sensation shooting pain down your legs or your legs become weak and give out you need to return to the emergency department. 3. You need to drink 3-4 L of fluid per day. 4. Continue to take your ibuprofen as prescribed. 5. Take [place] 5/325 as a rescue medicine for severe pain and discomfort unrelieved by the cyclobenzaprine and ibuprofen since you are not breast feeding. 6. Take the Keflex as prescribed for what appears to be a urinary tract infection. 7. Take the cyclobenzaprine as a muscle relaxant for increased pain and discomfort. 8. Apply warm compresses to your back. Apply every 2 hours for 20-30 minutes. Prescriptions: New hydrocodone-acetaminophen [[place]] 5-325 mg tablet 1 tab PO Q6H PRN (Reason: pain) Qty: 12 RF: 0 cephalexin [Keflex] 500 mg capsule 500 mg PO TID Qty: 15 RF: 0 cyclobenzaprine 10 mg tablet 10 mg PO TID PRN (Reason: muscle spasm) Qty: 15 RF: 0 No Action prenat.vits,chata,[id number] Tablet 1 tab PO DAILY RF: 0 docusate sodium [DOK] 100 mg Capsule 100 mg PO DAILY Qty: 30 RF: 0 ibuprofen 600 mg Tablet 600 mg PO Q6HR PRN (Reason: Pain, Mild (1-3)) Qty: 30 RF: 0 Referrals: Kristian Baker [Primary Care Provider] -
[2020-05-19] MEDS: KETOROLAC 60 MG/2 ML VIAL 30 MG IV (09:12)
[2020-05-19] MEDS: CYCLOBENZAPRINE 10 MG TABLET PO (09:12)
[2020-05-19 09:19] LABS: Add Manual Diff / Slide Review NO; Basophils Absolute Auto 100 /uL (0-100); Eosinophils Absolute Auto 100 /uL (0-450); Eosinophils Percent Auto 1.4 % (2-4); Hematocrit 35.1 % (36-46); Hemoglobin 11.7 g/dL (12.0-16.0); Lymphocytes Absolute Auto 1500 /uL (1100-4500); Lymphocytes Percent Auto 17.3 % (25-40); Mean Corpuscular HGB Conc 33.4 % (30-36); Mean Corpuscular Hemoglobin 28.7 PG (26-34); Mean Corpuscular Volume 86.1 fL (80-100); Monocytes Absolute Auto 500 /uL (0-900); Neutrophils Absolute Auto 6600 /uL (1500-7000); Neutrophils Percent Auto 74.3 % (50-75); Platelet Count 322 X10^3/uL (150-400); Red Blood Cell Count 4.07 X10^6/uL (4.0-5.2); Red Cell Distribution Width 13.4 % (11.6-14.8); White Blood Cell Count 8.9 X10^3/uL (4.5-11.0)
[2020-05-19 09:22] LABS: Bilirubin Urine UA NEGATIVE (NEGATIVE); Color Urine UA YELLOW; Glucose Urine UA NEGATIVE (Negative); Ketones Urine UA NEGATIVE (NEGATIVE); Leukocyte Esterase Urine UA 3+ (NEGATIVE); Nitrite Urine UA NEGATIVE (Negative); Occult Blood Urine UA 3+ (Negative); Protein Urine UA 1+ (Negative); Urobilinogen Urine UA 0.2 E.U./dL (0.2)
[2020-05-19 09:23] LABS: Appearance Urine UA Slightly Cloudy
[2020-05-19 09:29] LABS: Creatine Kinase 68 U/L (30-135)
[2020-05-19 09:30] LABS: Lactate (Lactic Acid) 0.5 mmol/L (0.7-2.1)
[2020-05-19 09:31] LABS: Alanine Aminotransferase 36 IU/L (<35); Albumin Globulin Ratio 1.2 (1.0-2.8); Alkaline Phosphatase 140 U/L (38-126); Aspartate Aminotransferase 34 IU/L (14-36); BUN Creatinine Ratio 20.3 (6-22); Bilirubin Total 0.6 mg/dL (0.2-1.3); Blood Urea Nitrogen 12 mg/dL (7-17); C-Reactive Protein Quant 1.8 mg/dL (<1.0); Calcium 9.8 mg/dL (8.4-10.2); Carbon Dioxide 24 mmol/L (22-32); Chloride 106 mmol/L (98-107); Estimated Glomerular Filt Rate > 60.0 mL/min (>60); Globulin 3.3 g/dL (1.7-4.1); Glucose 97 mg/dL (70-100); HEMOLYSIS < 15 (0-50); Potassium 4.2 mmol/L (3.4-5.1); Sodium 136 mmol/L (137-145); Total Protein 7.3 g/dL (6.3-8.2)
[2020-05-19 09:39] LABS: Bacteria Urine Many (>30); Culture Indicated Urine Specimen Cultured; RBC Urine 10-30/HPF (0-5/HPF); Squamous Epithelial Cell Urine 0-1 /HPF (0-5/HPF); WBC Urine >100/HPF (0-5/HPF)
[2020-05-19 09:40] LABS: Erythrocyte Sedimentation Rate 59 MM/HR (0-20)
[2020-05-19] MEDS: cephALEXin 250 MG CAPSULE 500 MG PO (10:20)
[2020-05-19] MEDS: HYDROCODONE/ACET 5/325 TABLET 2 TAB PO (10:53)
[2020-05-19 11:07] VITALS: BP 125/76; PULSE 65; RESP 12; O2SAT 100
== END 2020-05-19 11:13 | disposition home or self-care (01) ==
PROVIDERS: Emergency Provider Emergency Medicine; PCP Family Medicine
DX: O86.20 Urinary tract infection following delivery, unspecified (principal); S39.012A Strain of muscle, fascia and tendon of lower back, initial encounter
CPT/HCPCS: 36415; 80053; 81001; 82550; 83605; 85025; 85651; 86140; 87086; 96374; 99284; J1885

== ENCOUNTER 2021-07-14 21:28 | Emergency (ER) | payer OTHER, SELFPAY ==
[2021-07-14 21:35] VITALS: BP 126/78; PULSE 96; RESP 16; TEMP 36.4; O2SAT 99
--- NOTE | 2021-07-14 22:00 | DI.US.S_ITS ---
PROCEDURE: US OB <= 14 WEEKS FETUS INDICATIONS: BLEEDING OUTSIDE/PRIOR DATING DATA: Last menstrual period (LMP): Unknown. LMP-based estimated date of delivery (GI): Not applicable. First dating scan (date and location): 07/14/21. Estimated date of delivery (GI) from first dating scan: 03/07/22. TECHNIQUE: Real-time scanning was performed of the fetus and maternal pelvic organs, with image documentation. Endovaginal scanning was also performed to better visualize the fetus and maternal ovaries. COMPARISON: None. FINDINGS: Embryo: pole is identified. A yolk sac measuring 3.5 mm and unfused amnion are seen associated with the pole. pole crown-rump length is 0.49 cm corresponding to a six week two day plus or minus four day gestation. A 2nd yolk sac is seen measuring 1.4 mm without visible pole. Heart rate: 116 beats per minute Measurement variability in dating: +/- 4 weeks by LMP, +/- 7 days by mean sac diameter (use before 6 weeks gestation if crown-rump length not able to be measured), +/- 5 days by crown-rump length (up to 8 weeks 6 days gestation), +/- 7 days by crown-rump length (up to 13 weeks 6 days gestation). Maternal organs: There is a small amount of mildly complicated periuterine fluid. The cervix is closed. Retroverted uterus contains a fundal gestational sac. There is a subchorionic hemorrhage along the fundal aspect of the sac encompassing about 50% of the sac circumference. The right ovary contains a thick walled peripherally vascular corpus luteum measuring about 2.1 cm. The left ovary is normal. IMPRESSION: 1. Single living intrauterine with crown-rump length correlating to six week two day plus or minus four days gestation and estimated due date of 03/07/22. 2. A 2nd, small yolk sac is visible without associated pole. Follow-up in 2-3 weeks to confirm single 10 or twin . 3. Inactive subchorionic hemorrhage encompassing 50% of the sac circumference. 4. Closed cervix. Dictated by: Yessi Prado M.D. on 07/14/2021 at 23:40 Approved by: Yessi Prado M.D. on 07/14/2021 at 23:47
[2021-07-14 22:13] LABS: Add Manual Diff / Slide Review NO; Basophils Absolute Auto 100 /uL (0-100); Basophils Percent Auto 0.9 % (0-2); Eosinophils Absolute Auto 100 /uL (0-450); Eosinophils Percent Auto 0.9 % (2-4); Hematocrit 33.4 % (36-46); Hemoglobin 11.3 g/dL (12.0-16.0); Lymphocytes Absolute Auto 2200 /uL (1100-4500); Lymphocytes Percent Auto 25.9 % (25-40); Mean Corpuscular HGB Conc 33.8 % (30-36); Mean Corpuscular Hemoglobin 28.9 PG (26-34); Mean Corpuscular Volume 85.6 fL (80-100); Monocytes Absolute Auto 600 /uL (0-900); Monocytes Percent Auto 6.8 % (3-14); Neutrophils Absolute Auto 5500 /uL (1500-7000); Neutrophils Percent Auto 65.5 % (50-75); Platelet Count 220 X10^3/uL (150-400); Red Cell Distribution Width 12.8 % (11.6-14.8); White Blood Cell Count 8.5 X10^3/uL (4.5-11.0)
[2021-07-14 23:04] LABS: HCG Quantitative /Beta subunit 13702 mIU/mL
--- NOTE | 2021-07-14 23:10 | ED.PREGNANCY ---
HPI - General Chief complaint: Vaginal Bleeding Stated complaint: 6 WKS BLEEDING AND CRAMPING Time Seen by Provider: 07/14/21 21:43 Source: patient Mode of arrival: Ambulatory History of Present Illness HPI Narrative: 21-year-old female nonsmoker without chronic medical problems presents with a chief complaint of a few days of lower pelvic cramping and vaginal spotting. She is a at 7 weeks (by dates) and about 6 weeks by ultrasound. Her symptoms started for 5 days ago and she presented to an outside facility where they performed lab work and an ultrasound, she was encouraged to follow-up with her doctors and return for worsening symptoms. At that time she was having bright red bleeding and now it is admittedly slowed and dark and, if not turned brown. She is not dizzy nor weak or lightheaded. She denies any chest pain or shortness of breath. She is nauseated but denies any vomiting. She denies any dysuria, frequency or urgency. Related Data Previous Rx's Medication Instructions Recorded ibuprofen 600 mg tablet 600 mg PO Q6HR PRN #30 tab 05/12/20 Allergies Allergy/AdvReac Type Severity Reaction Status Date / Time No Known Drug Allergies Allergy Verified 06/21/20 13:51 Review of Systems Review of Systems Narrative: GENERAL: Denies chills, fatigue, malaise, fever, sweats. HEENT: Denies sinus pain, ear pain, sore throat, difficulty swallowing, dizziness. RESPIRATORY: Denies dyspnea, cough, wheezing, hemoptysis, sputum. CARDIOVASCULAR: Denies chest pain, palpitations, orthopnea, edema, GASTROINTESTINAL: Denies nausea, vomiting, abdominal pain, diarrhea, constipation, melena. : See HPI MUSCULOSKELETAL: denies weakness, joint pain, or bony pain SKIN: Denies rash, skin lesions, or other NEUROLOGIC: Denies weakness, headache, numbness, change in speech, confusion, seizures, incoordination. PSYCHIATRIC: No concerning psychosocial issues. 12 point review of systems is negative except for those stated above Exam Narrative Exam Narrative: GENERAL: [21 year old patient appears stated age. Well-developed patient, in mild distress. HEAD: Atraumatic. Normocephalic. EYES: Pupils equal round and reactive. Extraocular motions intact. No scleral icterus. No injection or drainage. ENT: Nose without bleeding, purulent drainage. Throat without erythema, tonsillar hypertrophy or exudate. Airway patent. NECK: Trachea midline. Non tender CARDIOVASCULAR: Regular rate and rhythm without murmurs, gallops, or rubs. RESPIRATORY: Clear to auscultation. Breath sounds equal bilaterally. No wheezes, rales, or rhonchi. GASTROINTESTINAL: Abdomen soft, non-tender, nondistended. EXTREMITIES: No edema or joint tenderness. BACK: Nontender without deformity or crepitance. No flank tenderness. NEURO: AOx3. SKIN: No rash or erythema of visible areas Initial Vital Signs Initial Vital Signs: Vital Signs Temperature 97.5 F L 07/14/21 21:35 Pulse Rate 96 H 07/14/21 21:35 Respiratory Rate 16 07/14/21 21:35 Blood Pressure 126/78 07/14/21 21:35 Pulse Oximetry 99 07/14/21 21:35 Course Course Course Narrative: Records obtained from would be, labs unremarkable, hCG over 8000. Ultrasound demonstrates early intrauterine with possible 2 yolk sacs and no crown rump length or heartbeat. Mean sac diameter measurement is 5 weeks and 4 days, perigestational hemorrhage Orders Ordered: ED Orders 07/14/21 22:00 US OB <= 14 weeks fetus Stat 07/14/21 22:07 Complete Blood Count AUTO DIFF Stat HCG Quantitative /Beta subunit Stat Vital Signs Vital signs: Vital Signs - 8 hr 07/14/21 23:29 Pulse Rate 71 Respiratory Rate 16 Blood Pressure 116/70 Pulse Oximetry 100 MDM - OB/Uterine Contractions Lab Data Result diagrams: 07/14/21 22:07 Labs: Lab Results 07/14/21 07/14/21 Range/Units 22:07 22:07 WBC 8.5 (4.5-11.0) X10^3/uL RBC 3.90 L (4.0-5.2) X10^6/uL Hgb 11.3 L (12.0-16.0) g/dL Hct 33.4 L (36-46) % MCV 85.6 (80-100) fL MCH 28.9 (26-34) PG MCHC 33.8 (30-36) % RDW 12.8 (11.6-14.8) % Plt Count 220 (150-400) X10^3/uL Neut % (Auto) 65.5 (50-75) % Lymph % (Auto) 25.9 (25-40) % Tyler % (Auto) 6.8 (3-14) % Eos % (Auto) 0.9 L (2-4) % Baso % (Auto) 0.9 (0-2) % Neut # (Auto) 5500 (7261-5791) /uL Lymph # (Auto) 2200 (3556-3917) /uL Tyler # (Auto) 600 (0-900) /uL Eos # (Auto) 100 (0-450) /uL Baso # (Auto) 100 (0-100) /uL HCG, Quant 67098 mIU/mL Imaging Data US - WOMEN'S ACTIVITIES ADVISER: My Impression: IUP at [id number] perigestational bleed unchanged. FHT measured and within normal Discharge Plan Departure Patient Disposition: Home Clinical Impression: Bleeding in early Instructions: DI for Vaginal Bleeding During Activity Restrictions/Additional Instructions: *You have been diagnosed with [vaginal bleeding in early . Blood work and ultrasound are very reassuring, although you will need to follow closely with your chief airport guide for repeat labs and possible imaging *What to do: *Please follow up with yourOB provider in 2-3 days, call for an appointment. Let them know you were seen in the Emergency Department and that we ask that you be seen in follow up. Your beta HCG was 8136 and today it is 13,702 *Return to Emergency Department if you should have any new, worsening or concerning symptoms, such as [fever greater than 101 F, shaking chills, worsening pain, bleeding through a pad or more per hour or other bothersome symptoms Prescriptions: No Action ibuprofen 600 mg Tablet 600 mg PO Q6HR PRN (Reason: Pain, Mild (1-3)) Qty: 30 RF: 0 Referrals: Kristian Baker [Primary Care Provider] -
[2021-07-14 23:29] VITALS: BP 116/70; PULSE 71; RESP 16; O2SAT 100
== END 2021-07-14 23:29 | disposition home or self-care (01) ==
PROVIDERS: Emergency Provider Emergency Medicine; PCP Family Medicine
DX: O20.9 Hemorrhage in early pregnancy, unspecified (principal); R10.2 Pelvic and perineal pain; Z3A.01 Less than 8 weeks gestation of pregnancy
CPT/HCPCS: 76801; 76817; 84702; 85025; 99283

== ENCOUNTER → 2021-07-17 14:37 | Outpatient (CLI) | payer OTHER, SELFPAY ==
--- NOTE | 2021-07-17 14:38 | DI.US.S_ITS ---
PROCEDURE: US OB <= 14 WEEKS FETUS INDICATIONS: FOLLOW-UP OUTSIDE/PRIOR DATING DATA: Last menstrual period (LMP): Unknown LMP-based estimated date of delivery (GI): Unknown. First dating scan (date and location): 07/14/2021 Estimated date of delivery (GI) from first dating scan: 03/07/2022. TECHNIQUE: Real-time scanning was performed of the fetus and maternal pelvic organs, with image documentation. Endovaginal scanning was also performed to better visualize the fetus and maternal ovaries. COMPARISON: [facility], OB <= 14 WEEKS FETUS, 07/14/2021, 22:50. FINDINGS: Embryo: Single intrauterine gestational sac is again seen with fetus and yolk sac seen. Maury-rump length measures 5 mm with estimated gestational age of 6 weeks, 2 days. Estimated gestational age based on previous study is 6 weeks 5 days. Possible 2nd yolk sac is noted adjacent to the primary yolk sac and measures 2 mm in size . Heart rate: 111 beats per minute. There is a 2.5 x 0.8 x 1.2 cm subchorionic hemorrhage slightly decreased in size compared to previous study. Maternal organs: Ovaries are visualized and are within normal limits. Right corpus luteal cyst is again seen and is unchanged from prior study. IMPRESSION: 1. Single live intrauterine gestation with fetus and yolk sac seen. heart rate is 111 beats per minute. Estimated gestational age based on current study is 6 weeks, 2 days. Estimated gestational age based on previous study is 6 weeks, 5 days. 2. Interval slight decrease in size of patient's known subchorionic hemorrhage. 3. Suggestion of a tiny 2nd yolk sac as above and is of indeterminate significance. 4. Stable corpus luteal cyst in right ovary. Dictated by: Kenneth Hartman M.D. on 07/17/2021 at 16:42 Approved by: Kenneth Hartman M.D. on 07/17/2021 at 16:46
== END ==
PROVIDERS: PCP Family Medicine; Referring Provider Family Medicine; Visit Provider Family Medicine
DX: Z34.81 Encounter for supervision of other normal pregnancy, first trimester (principal); Z3A.01 Less than 8 weeks gestation of pregnancy
CPT/HCPCS: 76801; 76817

== ENCOUNTER → 2021-07-25 10:53 | Outpatient (CLI) | payer OTHER, SELFPAY ==
[2021-07-25 13:20] LABS: HCG Quantitative /Beta subunit 95102 mIU/mL
== END ==
PROVIDERS: PCP Family Medicine; Referring Provider Family Medicine; Visit Provider Family Medicine
DX: O20.9 Hemorrhage in early pregnancy, unspecified (principal)
CPT/HCPCS: 36415; 84702

== ENCOUNTER → 2021-07-25 12:26 | Outpatient (CLI) | payer OTHER, SELFPAY ==
--- NOTE | 2021-07-25 12:27 | DI.US.S_ITS ---
PROCEDURE: US OB <= 14 WEEKS FETUS INDICATIONS: bleeding while OUTSIDE/PRIOR DATING DATA: Last menstrual period (LMP): Unknown. LMP-based estimated date of delivery (GI): Unknown. First dating scan (date and location): 07/14/21. Estimated date of delivery (GI) from first dating scan: 03/07/22. TECHNIQUE: Real-time scanning was performed of the fetus and maternal pelvic organs, with image documentation. Endovaginal scanning was also performed to better visualize the fetus and maternal ovaries. COMPARISON: [facility], OB <= 14 WEEKS FETUS, 07/14/2021, 22:50. [facility], OB BIOPHYSICAL PROFILE, 05/01/2020, 15:33. [facility], OB <= 14 WEEKS FETUS, 07/17/2021, 14:53. FINDINGS: Embryo: Single living intrauterine fetus is present with a crown-rump length measuring 1.1 cm, 7 weeks 2 days. Subchorionic hemorrhage measuring 3.2 x 3.3 x 0.3 cm as before, previously 2.5 x 1.2 x 0.8 cm. Previously described additional, possibly involuted yolk sac, technically indeterminate Heart rate: 141 beats per minute Measurement variability in dating: +/- 4 weeks by LMP, +/- 7 days by mean sac diameter (use before 6 weeks gestation if crown-rump length not able to be measured), +/- 5 days by crown-rump length (up to 8 weeks 6 days gestation), +/- 7 days by crown-rump length (up to 13 weeks 6 days gestation). Maternal organs: Ovaries unremarkable except for a presumed right corpus luteum. . Prominent bilateral adnexal vessels. IMPRESSION: Single living intrauterine fetus demonstrating expected interval growth Perigestational hemorrhage as before. Dictated by: Teo Del Angel M.D. on 07/25/2021 at 13:53 Approved by: Teo Del Angel M.D. on 07/25/2021 at 13:58
== END ==
PROVIDERS: PCP Family Medicine; Referring Provider Family Medicine; Visit Provider Family Medicine
DX: O20.9 Hemorrhage in early pregnancy, unspecified (principal); Z3A.01 Less than 8 weeks gestation of pregnancy
CPT/HCPCS: 36415; 76801; 76817; 84702

== ENCOUNTER → 2021-08-20 15:50 | Outpatient (CLI) | payer OTHER, SELFPAY ==
[2021-08-20 17:03] LABS: Add Manual Diff / Slide Review NO; Basophils Absolute Auto 0 /uL (0-100); Basophils Percent Auto 0.5 % (0-2); Eosinophils Absolute Auto 0 /uL (0-450); Eosinophils Percent Auto 0.3 % (2-4); Hematocrit 32.6 % (36-46); Hemoglobin 11.3 g/dL (12.0-16.0); Lymphocytes Absolute Auto 1400 /uL (1100-4500); Lymphocytes Percent Auto 16.7 % (25-40); Mean Corpuscular HGB Conc 34.7 % (30-36); Mean Corpuscular Hemoglobin 29.3 PG (26-34); Mean Corpuscular Volume 84.6 fL (80-100); Monocytes Absolute Auto 400 /uL (0-900); Monocytes Percent Auto 4.8 % (3-14); Neutrophils Absolute Auto 6300 /uL (1500-7000); Neutrophils Percent Auto 77.7 % (50-75); Platelet Count 241 X10^3/uL (150-400); Red Blood Cell Count 3.85 X10^6/uL (4.0-5.2); Red Cell Distribution Width 12.7 % (11.6-14.8); White Blood Cell Count 8.1 X10^3/uL (4.5-11.0)
[2021-08-20 17:41] LABS: Appearance Urine UA SL CLOUDY; Bilirubin Urine UA NEGATIVE (NEGATIVE); Color Urine UA YELLOW; Glucose Urine UA NEGATIVE (Negative); Ketones Urine UA NEGATIVE (NEGATIVE); Leukocyte Esterase Urine UA NEGATIVE (NEGATIVE); Nitrite Urine UA NEGATIVE (Negative); Occult Blood Urine UA NEGATIVE (Negative); Protein Urine UA NEGATIVE (Negative); Specific Gravity Urine UA 1.015 (1.000-1.035); Urobilinogen Urine UA 0.2 E.U./dL (0.2)
[2021-08-21 06:08] LABS: RPR Screen Non Reactive (Non Reactive)
[2021-08-21 12:24] LABS: Varicella IgG Antibody <135 index (Immune >165)
[2021-08-21 17:10] LABS: Hepatitis B Surface Antigen NEGATIVE s/c (NEGATIVE); Rubella Antibody IgG 3.5 IU/mL (>15)
[2021-08-21 17:27] LABS: HIV 1 & 2 Ab/Ag 4th Gen Combo NEGATIVE (NEGATIVE); Hep C Virus Ab w/Reflex Quant NEGATIVE s/c (NEGATIVE)
== END ==
PROVIDERS: PCP Family Medicine; Referring Provider Family Medicine; Visit Provider Family Medicine
DX: Z34.81 Encounter for supervision of other normal pregnancy, first trimester (principal)
CPT/HCPCS: 36415; 80055; 81003; 86787; 86803; 86850; 86900; 86901; 87086; 87389

== ENCOUNTER → 2021-08-26 11:17 | Outpatient (CLI) | payer OTHER, SELFPAY ==
--- NOTE | 2021-08-26 11:18 | DI.US.S_ITS ---
PROCEDURE: US OB <= 14 WEEKS FETUS INDICATIONS: BLEEDING OUTSIDE/PRIOR DATING DATA: Last menstrual period (LMP): Unknown. First dating scan (date and location): [facility]; July 14, 2021. Estimated date of delivery (GI) from first dating scan: March 07, 2022 . TECHNIQUE: Real-time scanning was performed of the fetus and maternal pelvic organs, with image documentation. COMPARISON: [facility], , OB <= 14 WEEKS FETUS, 07/25/2021, 12:37. FINDINGS: A 3.4 x 0.9 by 0.9 cm hypoechoic area seen adjacent to the gestational sac, most consistent with a subchorionic hemorrhage. BPD: 2.03 cm; 13 weeks, 2 days HC: 8 cm; 13 weeks, 3 days AC: 5.8 cm; 12 weeks, 4 days FL: 0.81 cm; 12 weeks, 3 days Heart rate: 152 beats per minute. Measurement variability in dating: +/- 4 weeks by LMP, +/- 7 days by mean sac diameter (use before 6 weeks gestation if crown-rump length not able to be measured), +/- 5 days by crown-rump length (up to 8 weeks 6 days gestation), +/- 7 days by crown-rump length (up to 13 weeks 6 days gestation). Maternal organs: Ovaries are not well demonstrated. IMPRESSION: Live single intrauterine gestation as detailed above. Dictated by: Montez Steele M.D. on 08/26/2021 at 12:58 Approved by: Montez Steele M.D. on 08/26/2021 at 13:04
== END ==
PROVIDERS: PCP Family Medicine; Referring Provider Family Medicine; Visit Provider Family Medicine
DX: O20.9 Hemorrhage in early pregnancy, unspecified (principal)
CPT/HCPCS: 76801

== ENCOUNTER → 2021-09-18 12:44 | Outpatient (CLI) | payer OTHER, SELFPAY ==
[2021-09-21 18:34] LABS: AFP, Serum 32.6 ng/mL (.); Estriol, Free 1.06 ng/mL (.); Inhibin A, Dimeric 145.04 pg/mL (.); Inhibin A, MoM 0.86 (.); Maternal Ethnicity Caucasian (.); Maternal Weight 135 lbs (.); Number of Fetuses No (.); OSBR Risk 1 IN 10000 (.); Results Report (.); Test Results *Screen Negative* (.); hCG, Serum 40825 mIU/mL (.)
== END ==
PROVIDERS: PCP Family Medicine; Referring Provider Family Medicine; Visit Provider Family Medicine
DX: Z34.92 Encounter for supervision of normal pregnancy, unspecified, second trimester (principal); Z3A.18 18 weeks gestation of pregnancy
CPT/HCPCS: 36415; 82105; 82677; 84702; 86336

== ENCOUNTER → 2021-10-11 12:40 | Outpatient (CLI) | payer OTHER, SELFPAY ==
--- NOTE | 2021-10-11 12:41 | DI.US.S_ITS ---
PROCEDURE: US OB >= 14 WEEKS FETUS INDICATIONS: ANATOMY OUTSIDE/PRIOR DATING DATA: Last menstrual period (LMP): Unknown. First dating scan (date and location): [facility]; July 14, 2021. Estimated date of delivery (GI) from first dating scan: March 07, 2022. The calculations are made using the ultrasound GI of March 07, 2022. TECHNIQUE: Real-time scanning was performed of the fetus, with image documentation and biometric measurements. COMPARISON: None. FINDINGS: General: A single living intrauterine gestation is present. Presentation: Vertex. Placenta: Placental position is anterior , without previa. Amniotic fluid index: 10.4 cm, normal range is 5-24 cm. Single deepest vertical pocket is 3.4 cm. heart rate: 158 beats per minute. Maternal cervical canal: 3 cm long. Normal lower limit is 2.5 cm. biometrics: Biparietal diameter: 4.1 cm Head circumference: 15.5 cm Abdominal circumference: 13.1 cm Femur length: 2.8 cm Clinically estimated gestational age: 19 weeks Composite gestational age from present scan: 18 weeks, 4 days Estimated weight and percentile: 251 g +/-37 g; 27th percentile Anatomic survey: Neuro: Ventricles are non-dilated at less than 10 mm. Cisterna magna is normal at 3-11 mm. Cerebellum is normal in size and morphology. Nuchal skin fold: Normal at less than 6 mm between 14-21 weeks gestational age. Face: Peripheral not well seen. Spine: No evidence for spina bifida. Heart: Not well seen. Diaphragm: Diaphragm is intact. Stomach: Left-sided stomach is present. Kidneys: No hydronephrosis. Normal is less than 5 mm in 2nd trimester, less than 7 mm in 3rd trimester. Cord: 3-vessel cord has orthotopic insertion. Bladder: Normal in size. Extremities: All 4 extremities identified. IMPRESSION: 1. Live single intrauterine gestation. We strive to produce accurate, complete, and clear reports of imaging services. To assist us in improving patient care, this report was composed using standard report templates and voice recognition software. Therefore, it may contain abnormal punctuation, insertions and/or omissions. Occasional wrong-word or sound-alike substitutions may occur. Though we review the report and make efforts to correct it, we do recommend that the report be read carefully in proper context to recognize any text inaccuracies. Dictated by: Montez Steele M.D. on 10/11/2021 at 15:12 Approved by: Montez Steele M.D. on 10/11/2021 at 15:16
== END ==
PROVIDERS: PCP Family Medicine; Referring Provider Family Medicine; Visit Provider Family Medicine
DX: Z36.89 Encounter for other specified antenatal screening (principal); Z3A.18 18 weeks gestation of pregnancy
CPT/HCPCS: 76811

== ENCOUNTER → 2021-11-29 15:13 | Outpatient (CLI) | payer OTHER, SELFPAY ==
[2021-11-29 16:47] LABS: Hematocrit 28.7 % (36-46); Hemoglobin 10.1 g/dL (12.0-16.0)
[2021-11-29 17:50] LABS: GTT (PREG) 1 Hour PP 50gm Dose 104 mg/dL (76-139)
== END ==
PROVIDERS: PCP Family Medicine; Referring Provider Family Medicine; Visit Provider Family Medicine
DX: Z34.92 Encounter for supervision of normal pregnancy, unspecified, second trimester (principal); Z3A.26 26 weeks gestation of pregnancy
CPT/HCPCS: 36415; 82950; 85014; 85018

== ENCOUNTER 2022-01-03 22:22 | Outpatient (CLI) | payer OTHER, SELFPAY ==
--- NOTE | 2022-01-03 23:06 | PM.OBTRLD ---
Visit Information Visit Information Date of evaluation: 01/03/22 Primary OB Provider: Mima Munoz Reason for Evaluation: Yes non-stress test non-stress test reason: decreased movement Vital Signs Vital Signs: Temperature 36.7? blood pressure 116/61 heart rate 92 PFSH Medical History No known health problems anxiety (spontaneous vaginal delivery) (~05/11/20) Thumb fracture Family History Father No problems noted. Mother Altered cardiac tissue perfusion Grandfather Murder Grandmother Unknown whether patient has any health problems Grandfather Unknown whether patient has any health problems Grandmother Unknown whether patient has any health problems Sister Healthy adult Sister PCOS (polycystic ovarian syndrome) Social History marital status: details: Catarino Briceño [phone] number of children: 1 household members: spouse lives independently: Yes caregiver/support person: No pets and animals: Yes (X 2 dogs) education level: high school occupational status: employed current occupational exposures/hazards: No Previous occupational history: [employer] special leisa needs: No do you feel safe at home: Yes Smoking Status: Never smoker (Not cigarettes) Smokeless tobacco user: dissolvable tobacco (2017 - 2018; July 2020 - this ) second hand exposure: No alcohol intake: former (Pre- : very, very rare on occasion (last was over 2 years ago).) substance use type: does not use Type(s) of exercise: walking Evaluation Evaluation Baseline heart rate: 130 Variability: Moderate (11-25) monitor accelerations: Present Monitor Decelerations: Absent Category of Tracing: Reactive Diagnosis, Plan/Disposition Final Diagnosis (1) 31 weeks gestation of : Status: Acute (2) Decreased movement: Status: Acute Plan/Disposition Plan: 21-year-old at 31 weeks gestation with decreased movement. NST reactive. She reports movement in the center. Denies contractions, leaking or bleeding. Follow-up in clinic as scheduled or return sooner if needed. OB Disposition: home
== END 2022-01-03 23:44 | disposition home or self-care (01) ==
LOC: OB 01-07 06:44
PROVIDERS: PCP Family Medicine; Referring Provider Family Medicine; Visit Provider Family Medicine
DX: O36.8130 Decreased fetal movements, third trimester, not applicable or unspecified (principal); Z3A.31 31 weeks gestation of pregnancy
CPT/HCPCS: 59025; G0378; G0379

== ENCOUNTER → 2022-01-14 09:55 | Outpatient (CLI) | payer OTHER, SELFPAY ==
--- NOTE | 2022-01-14 09:56 | DI.US.S_ITS ---
PROCEDURE: US OB FOLLOW UP INDICATIONS: follow up 10/11 anatomy scan OUTSIDE/PRIOR DATING DATA: Last menstrual period (LMP): Unknown LMP-based estimated date of delivery (GI): Un known First dating scan (date and location): 07/14/2021 Estimated date of delivery (GI) from first dating scan: 03/07/2022. The calculations are made using the computer generated GI of 03/07/2022 TECHNIQUE: Real-time scanning was performed of the fetus, with image documentation and biometric measurements. Endovaginal scanning: Not indicated COMPARISON: None. FINDINGS: General: A single living intrauterine gestation is present. Presentation: Cephalic. Placenta: Placental position is anterior, without previa. Amniotic fluid index: 9.8 cm, normal range is 5-24 cm. Single deepest vertical pocket is 3.2 cm. heart rate: 121 beats per minute. Maternal cervical canal: 4.3 cm long. Normal lower limit is 2.5 cm. Clinically estimated gestational age: 32 weeks, 4 days. Other: facial profile, four-chamber heart, and outflow tracts are visualized and are within normal limits. IMPRESSION: 1. Single live intrauterine gestation with fetus in vertex presentation. heart rate is 121 beats per minute. Normal amount of amniotic fluid. 2. facial profile, four-chamber heart and outflow tracts are visualized on the current study and are within normal limits. We strive to produce accurate, complete, and clear reports of imaging services. To assist us in improving patient care, this report was composed using standard report templates and voice recognition software. Therefore, it may contain abnormal punctuation, insertions and/or omissions. Occasional wrong-word or sound-alike substitutions may occur. Though we review the report and make efforts to correct it, we do recommend that the report be read carefully in proper context to recognize any text inaccuracies. Dictated by: Kenneth Hartman M.D. on 01/14/2022 at 13:17 Approved by: Kenneth Hartman M.D. on 01/14/2022 at 13:19
== END ==
PROVIDERS: PCP Family Medicine; Referring Provider Family Medicine; Visit Provider Family Medicine
DX: Z36.2 Encounter for other antenatal screening follow-up (principal); Z3A.32 32 weeks gestation of pregnancy
CPT/HCPCS: 76816

== ENCOUNTER → 2022-02-07 14:08 | Outpatient (CLI) | payer OTHER, SELFPAY ==
[2022-02-08 15:09] LABS: Strep Grp B PCR NEG for Grp B Strep
== END ==
PROVIDERS: PCP Family Medicine; Visit Provider Family Medicine
DX: Z36.85 Encounter for antenatal screening for Streptococcus B (principal); Z3A.36 36 weeks gestation of pregnancy
CPT/HCPCS: 87653

== ENCOUNTER 2022-02-21 14:16 | Outpatient (CLI) | payer OTHER, SELFPAY ==
--- NOTE | 2022-02-21 14:21 | DI.US.S_ITS ---
PROCEDURE: US OB LIMITED INDICATIONS: CHANGE IN FUNDAL HEIGHT; EFW, JAYLYN OUTSIDE/PRIOR DATING DATA: Last menstrual period (LMP): Unknown. LMP-based estimated date of delivery (GI): Not available. First dating scan (date and location): July 14, 2021, [facility]. Estimated date of delivery (GI) from first dating scan: March 07, 2022. TECHNIQUE: Real-time scanning was performed of the fetus, with image documentation and biometric measurements. Endovaginal scanning: Not performed COMPARISON: [facility], , US OB LIMITED, 04/10/2020, 13:04. FINDINGS: General: A single living intrauterine gestation is present. Presentation: Vertex. Placenta: Placental position is anterior , without previa. Amniotic fluid index: 5.8 cm, normal range is 5-24 cm. Single deepest vertical pocket is 3.04 cm. heart rate: 127 beats per minute. Maternal cervical canal: Not visualized biometrics: Biparietal diameter: 9.5 cm, 38 weeks, 4 days Head circumference: 33.8 cm, 38 weeks 6 days Abdominal circumference: 33.7 cm, 37 weeks 4 days Femur length: 7.4 cm, 38 weeks, 0 days Initial scan estimated gestational age: 38 weeks, 0 days Composite gestational age from present scan: 38 weeks, 2 days Estimated weight and percentile: 3350 g, 61st percentile Other: Not applicable. IMPRESSION: 1. Single live intrauterine gestation with a composite gestational age concordant with dates by initial scan. 2. Borderline oligohydramnios. Measurement variability for biometric dating: +/- 7 days from 14 weeks to 15 weeks 6 days gestation, +/- 10 days from 16 weeks to 21 weeks 6 days gestation, +/- 2 weeks from 22 weeks to 27 weeks 6 days gestation, +/- 3 weeks for 28 weeks gestation or later. weight reference: 4500 g or EFW >90/95% is considered macrosomia or large for gestational age. EFW <10% is small for gestational age. EFW 5% or less is considered intra-uterine growth restriction. We strive to produce accurate, complete, and clear reports of imaging services. To assist us in improving patient care, this report was composed using standard report templates and voice recognition software. Therefore, it may contain abnormal punctuation, insertions and/or omissions. Occasional wrong-word or sound-alike substitutions may occur. Though we review the report and make efforts to correct it, we do recommend that the report be read carefully in proper context to recognize any text inaccuracies. Dictated by: Darcie Mejia M.D. on 02/21/2022 at 16:47 Approved by: Darcie Mejia M.D. on 02/21/2022 at 16:50
--- NOTE | 2022-02-21 15:02 | PM.OBTRLD ---
Visit Information Visit Information Date of evaluation: 02/21/22 Primary OB Provider: Mima Munoz Reason for Evaluation: Yes non-stress test Comments/Additional reasons for admission: 21-year-old at 38 weeks gestation sent to the center for NST and ultrasound due to a decrease in fundal height in clinic. She denies leaking or bleeding and reports occasional contractions. Vital Signs Vital Signs: Temperature 36.7? blood pressure 114/64 heart rate 70 PFSH Medical History No known health problems anxiety (spontaneous vaginal delivery) (~05/11/20) Thumb fracture Family History Father No problems noted. Mother Altered cardiac tissue perfusion Grandfather Murder Grandmother Unknown whether patient has any health problems Grandfather Unknown whether patient has any health problems Grandmother Unknown whether patient has any health problems Sister Healthy adult Sister PCOS (polycystic ovarian syndrome) Social History marital status: details: Catarino Briceño [phone] number of children: 1 household members: spouse lives independently: Yes caregiver/support person: No pets and animals: Yes (X 2 dogs) education level: high school occupational status: employed current occupational exposures/hazards: No Previous occupational history: [employer] special leisa needs: No do you feel safe at home: Yes Smoking Status: Never smoker (Not cigarettes) Smokeless tobacco user: dissolvable tobacco (2017 - 2018; July 2020 - this ) second hand exposure: No alcohol intake: former (Pre- : very, very rare on occasion (last was over 2 years ago).) substance use type: does not use Type(s) of exercise: walking Evaluation Evaluation Baseline heart rate: 120 Variability: Moderate (11-25) monitor accelerations: Present Monitor Decelerations: Absent Category of Tracing: Reactive Diagnosis, Plan/Disposition Final Diagnosis (1) 38 weeks gestation of : Status: Acute (2) Oligohydramnios antepartum: Status: Acute Plan/Disposition Plan: 21-year-old at 38 weeks gestation. NST reactive. JAYLYN was 5.8. Estimated weight 66 percentile. Will have her return in 3 days for repeat NST and JAYLYN or sooner if indicated. Induction scheduled at 39 weeks on 02/28/22 for oligohydramnios. OB Disposition: home
== END 2022-02-21 15:30 | disposition home or self-care (01) ==
LOC: LABOR 14:55 → OB 02-25 06:36
PROVIDERS: PCP Family Medicine; Referring Provider Specialist; Visit Provider Family Medicine
DX: O41.03X0 Oligohydramnios, third trimester, not applicable or unspecified (principal); O36.5930 Maternal care for other known or suspected poor fetal growth, third trimester, not applicable or unspecified; Z3A.38 38 weeks gestation of pregnancy
CPT/HCPCS: 59025; 76815; G0378; G0379

== ENCOUNTER 2022-02-24 10:21 | Outpatient (CLI) | payer OTHER, SELFPAY ==
--- NOTE | 2022-02-24 10:41 | DI.US.S_ITS ---
PROCEDURE: US OB LIMITED INDICATIONS: JAYLYN OUTSIDE/PRIOR DATING DATA: Last menstrual period (LMP): Unknown. LMP-based estimated date of delivery (GI): Unknown. First dating scan (date and location): 07/14/2021. Estimated date of delivery (GI) from first dating scan: 03/07/2022. The calculations are made using the ultrasound GI of 03/07/2022. TECHNIQUE: Real-time scanning was performed of the fetus, with image documentation. COMPARISON: [facility], US OB LIMITED, 02/21/2022, 14:32. FINDINGS: A single living intrauterine gestation is present. Presentation: Vertex. Placenta: Placental position is anterior, without previa. Amniotic fluid index: 12.7 cm, normal range is 5-24 cm. IMPRESSION: Single live intrauterine with an estimated gestational age of 38 weeks 3 days. JAYLYN is 12.7 cm, 50th percentile. Dictated by: Amanuel Mccullough M.D. on 02/24/2022 at 12:27 Approved by: Amanuel Mccullough M.D. on 02/24/2022 at 12:30
--- NOTE | 2022-02-24 11:34 | PM.OBTRLD ---
Visit Information Visit Information Date of evaluation: 02/24/22 Primary OB Provider: Mima Munoz On-call OB Provider: Bre Benitez Reason for Evaluation: Yes non-stress test non-stress test reason: other (Borderline oligohydramnios) Vital Signs Vital Signs: Temperature 36.7? blood pressure 112/78 heart rate 117 PFSH Medical History No known health problems anxiety (spontaneous vaginal delivery) (~05/11/20) Thumb fracture Family History Father No problems noted. Mother Altered cardiac tissue perfusion Grandfather Murder Grandmother Unknown whether patient has any health problems Grandfather Unknown whether patient has any health problems Grandmother Unknown whether patient has any health problems Sister Healthy adult Sister PCOS (polycystic ovarian syndrome) Social History marital status: details: Catarino Briceño [phone] number of children: 1 household members: spouse lives independently: Yes caregiver/support person: No pets and animals: Yes (X 2 dogs) education level: high school occupational status: employed current occupational exposures/hazards: No Previous occupational history: [employer] special leisa needs: No do you feel safe at home: Yes Smoking Status: Never smoker (Not cigarettes) Smokeless tobacco user: dissolvable tobacco (2017 - 2018; July 2020 - this ) second hand exposure: No alcohol intake: former (Pre- : very, very rare on occasion (last was over 2 years ago).) substance use type: does not use Type(s) of exercise: walking Evaluation Evaluation Baseline heart rate: 120 Variability: Moderate (11-25) monitor accelerations: Present Monitor Decelerations: Absent Category of Tracing: Reactive Diagnosis, Plan/Disposition Final Diagnosis (1) 38 weeks gestation of : Status: Acute (2) Oligohydramnios antepartum: Status: Acute Plan/Disposition Plan: 21-year-old at 38 weeks and 3 days gestation with borderline oligohydramnios. NST reactive.? JAYLYN 12, up from 5.8 last week. Induction scheduled at 39 weeks on 02/28/22. OB Disposition: home
== END 2022-02-24 11:43 | disposition home or self-care (01) ==
LOC: OB 02-25 06:38
PROVIDERS: PCP Family Medicine; Referring Provider Family Medicine; Visit Provider Family Medicine
DX: O41.03X0 Oligohydramnios, third trimester, not applicable or unspecified (principal); Z3A.38 38 weeks gestation of pregnancy
CPT/HCPCS: 59025; 76815; G0378; G0379

== ENCOUNTER 2022-02-28 06:47 | Inpatient (IN) | payer OTHER, SELFPAY ==
--- NOTE | 2022-02-28 07:30 | P.HPOB_ITS ---
OB HPI Date/Time Date of admission: 02/28/22 Date Patient Seen: 02/28/22 Time Patient Seen: 07:30 History of Present Condition Chief complaint: INDUCTION GI Calculator Estimated Delivery Date Method Current WG Current Estimate 03/07/22 Ultrasound #1 39w 0d Other Estimates 02/27/22 LMP (Certain) 40w 1d 03/11/22 Ultrasound #2 38w 3d : 2 Para: 1 Narrative: 21-year-old at 39 weeks gestation here for induction due to borderline oligohydramnios. At 38 weeks fundal heights were less than expected. JAYLYN completed and returned at 5.8 and estimated weight at the 61st percentile. Repeat JAYLYN 3 days later was up to 12. She denies leaking or bleeding and reports good movement. otherwise has been uncomplicated. care: good care, initiated at week # (10), number of visits (11) and pounds weight gain (26) Dating criteria OB: based on 1st trimester US only Ultrasounds: normal mid trimester US Obstetrical complications: other (Borderline oligohydramnios) Medical complications OB: none Indications Indication for induction OB: other (Borderline oligohydramnios) Preadmission Labs Last OB Lab Results: Blood Type O Positive 08/20/21 15:57 08/20/21 Antibody Screen Negative 08/20/21 15:57 08/20/21 Hematocrit 30.2 % (36-46) L 02/28/22 08:07 02/28/22 Hemoglobin 10.5 g/dL (12.0-16.0) L 02/28/22 08:07 02/28/22 Hepatitis B Surface Antigen Negative s/c (NEGATIVE) 08/20/21 15:57 08/20/21 Hepatitis C Antibody Negative s/c (NEGATIVE) 08/20/21 15:57 08/20/21 Rubella Antibody 3.5 IU/mL (>15) L 08/20/21 15:57 08/20/21 Varicella-Zoster IgG Antibody <135 index (Immune >165) L 08/20/21 15:57 08/20/21 Glucose 1 Hour 104 mg/dL (76-139) 11/29/21 15:16 11/29/21 Group B Streptococcus (PCR) Neg for grp b strep 02/07/22 14:08 02/07/22 -: Chlamydia screen: negative, Gonorrhea screen: negative and Urine: negative -: PAP smear: Normal Genetic Screens: Quad screen: Normal External Labs -: Urine: negative Prior (ies) Past Pregnancies Del. Date GA/Weeks Labor Lgth Wt Sex Route Outcome Anesthesia Place Delv Breastfeed Preg Comp Name 05/11/20 41.3 7 6 lb 10 oz Male vaginal live - full te rm epidural Dr Munoz delivered baby Formula right from the start post-dates induction none Fernando Briceño Delivery Date: 05/11/20 Last Updated by: Praveena Jin R.N. * Post dates-induction : Pitocin. *Cat II FHR. *Anxiety and Depression PP. *Back issue spasm and couldn't walk for X 4 days. Went to ER for that. Evaluation Evaluation Baseline heart rate: 120 Variability: Moderate (11-25) monitor accelerations: Present Monitor Decelerations: Absent Category of Tracing: Reactive Dilation (cm): 3 Dilation: 3-4 cm Effacement: 40-50% station: -2 Position of cervix: posterior Consistency: soft Figueroa score: 6 PFSH Medical History No known health problems anxiety (spontaneous vaginal delivery) (~05/11/20) Thumb fracture Family History Father No problems noted. Mother Altered cardiac tissue perfusion Grandfather Murder Grandmother Unknown whether patient has any health problems Grandfather Unknown whether patient has any health problems Grandmother Unknown whether patient has any health problems Sister Healthy adult Sister PCOS (polycystic ovarian syndrome) Social History marital status: details: Catarino Briceño [phone] number of children: 1 household members: spouse lives independently: Yes caregiver/support person: No pets and animals: Yes (X 2 dogs) education level: high school occupational status: employed current occupational exposures/hazards: No Previous occupational history: [employer] special leisa needs: No do you feel safe at home: Yes Smoking Status: Never smoker (Not cigarettes) Smokeless tobacco user: dissolvable tobacco (2017 - 2018; July 2020 - this ) second hand exposure: No alcohol intake: former (Pre- : very, very rare on occasion (last was over 2 years ago).) substance use type: does not use Type(s) of exercise: walking Meds Home Medications and Allergies Home Medications Medication Instructions Recorded Confirmed Type prenat.vits,chata,wbj-ujkz-bldzv 1 tab PO DAILY 08/05/21 02/21/22 History Allergies Allergy/AdvReac Type Severity Reaction Status Date / Time No Known Drug Allergies Allergy Verified 02/21/22 13:56 Review of Systems Review of Systems ROS: Yes All systems reviewed with the patient and are negative except as otherwise documented OB Exam Narrative Exam Narrative: Temperature 36.6? blood pressure 107/62 heart rate 77 HENMT Head: normal to inspection Mouth: oral mucosae normal Eyes General: appearance normal, both eyes and all related structures Resp Effort & Inspection: normal respiratory effort Auscultation: clear to auscultation bilaterally Cardio Rate: regular rate Rhythm: regular rhythm Heart Sounds: S1 normal and S2 normal Extremities Lower extremity: Yes normal to inspection; No edema Estimated Weight (lbs): 7 Objective Labs Result Diagrams: 02/28/22 08:07 Assessment and Plan Assessment and Plan Assessment and Plan narrative: 21-year-old at weeks gestation here for elective induction. There was concern for borderline oligohydramnios at 38 weeks which improved on repeat US several days later. She is GBS negative. Plan Begin pitocin Epidural upon request Anticipate
[2022-02-28] MEDS: LACTATED RINGERS 1,000 ML 100 ML IV ×2 (08:18→12:56)
[2022-02-28] MEDS: OXYTOCIN PREMIX 30 UNIT/500 ML PLAST..BAG IV (08:30)
[2022-02-28 08:31] LABS: Add Manual Diff / Slide Review NO; Basophils Absolute Auto 100 /uL (0-100); Basophils Percent Auto 0.7 % (0-2); Eosinophils Absolute Auto 100 /uL (0-450); Eosinophils Percent Auto 1.2 % (2-4); Hematocrit 30.2 % (36-46); Hemoglobin 10.5 g/dL (12.0-16.0); Lymphocytes Absolute Auto 2300 /uL (1100-4500); Lymphocytes Percent Auto 26.2 % (25-40); Mean Corpuscular HGB Conc 34.7 % (30-36); Mean Corpuscular Hemoglobin 29.9 PG (26-34); Mean Corpuscular Volume 86.1 fL (80-100); Monocytes Absolute Auto 600 /uL (0-900); Monocytes Percent Auto 6.6 % (3-14); Neutrophils Absolute Auto 5800 /uL (1500-7000); Neutrophils Percent Auto 65.3 % (50-75); Platelet Count 191 X10^3/uL (150-400); Red Cell Distribution Width 12.8 % (11.6-14.8); White Blood Cell Count 8.9 X10^3/uL (4.5-11.0)
[2022-02-28 08:58] LABS: COVID19 -Nasal RAPID Negative (Negative)
[2022-02-28 09:13] VITALS: BP 107/62
--- NOTE | 2022-02-28 12:55 | PM.OBPNLAB ---
Date/Time Date Patient Seen: 02/28/22 Time Patient Seen: 12:55 Pain Control Pain control: tolerating well Comments: Feeling contractions more. Wants epidural after AROM. Pelvic Exam Dilation (cm): 4 Effacement (%): 70 station: -2 Amniotic membrane status: Ruptured (AROM with clear fluid) Contractions Monitor mode: External Pitocin rate (mU/min): 12 Contraction frequency (min): 2 Status status: Category l Heart Rate Baseline: 125 Monitor Accelerations: Present Monitor Decelerations: Absent Monitor Variability: Moderate Assessment and Plan Assessment: induction ongoing Plan: continuous present management Comments: 21 year old at 39 weeks gestation. Progression on pitocin, AROM for clear fluid. Epidural upon request.
--- NOTE | 2022-02-28 16:05 | PM.OBPNLAB ---
Date/Time Date Patient Seen: 02/28/22 Time Patient Seen: 16:05 Pain Control Pain control: epidural Pelvic Exam Dilation (cm): 6 Effacement (%): 90 station: -1 Amniotic membrane status: Ruptured (AROM with clear fluid) Contractions Monitor mode: External Contraction frequency (min): 2 Status status: Category l Heart Rate Baseline: 120 Monitor Accelerations: Present Monitor Decelerations: Early Monitor Variability: Moderate Assessment and Plan Assessment: active labor Plan: continuous present management
--- NOTE | 2022-02-28 17:54 | PM.OBPRVD ---
Labor & Delivery Delivery date: 02/28/22 Induction method: per pitocin protocol Delivery augmentation: rupture of membranes Delivery monitor: external FHT Route of delivery: L&D Laceration Description: None Estimated blood loss (mL): 100 Anesthesia Type: Epidural Narrative: 21-year-old at 39 weeks gestation who presented for induction. There had been concern for oligohydramnios however last JAYLYN improved. Stage I She received Pitocin per protocol and went on to receive an epidural with excellent pain control. Artificial rupture membranes at 12:40 p.m. with clear fluid. She was complete at 5:25 p.m.. EFM largely category 1 throughout stage I. Stage II Patient was complete and pushed 3 times over 1 contraction to deliver a vigorous female at 5:40 p.m.. Infant was vertex and CLAUDIA. Infant was immediately placed on mother's abdomen. Cord was clamped and cut after 1 minute delay. No resuscitation of the required. Stage III Placenta delivered at 5:46 p.m. after active management and appeared intact with a three-vessel cord. Pitocin bolus given after delivery of placenta. Fundus firm after delivery and hemostasis assured. There were no lacerations other than a superficial perineal laceration which did not require repair. Bilateral superficial labial skid monahan. EBL 100 mL Needle and sponge counts were correct. The vagina was inspected and no items were left in situ. Patient was doing well with Vanessa, her and at bedside. Baby 1: gender: Female Presentation: vertex Position: Left Occiput Anterior Cord Vessel Description: 3 Vessels score (1 min): 8 score (5 min): 9 Plan for aftercare: Routine care
[2022-02-28] MEDS: IBUPROFEN 600 MG TABLET PO (20:14)
[2022-03-01] MEDS: ACETAMINOPHEN 325 MG TABLET 650 MG PO (02:27)
[2022-03-01] MEDS: IBUPROFEN 600 MG TABLET PO ×2 (02:28→10:20)
[2022-03-01 07:09] LABS: Hematocrit 29.1 % (36-46)
[2022-03-01] MEDS: PRENATAL VIT,CALC/IRON/FOLIC 1 TABLET 1 TAB PO (10:20)
[2022-03-01] MEDS: DOCUSATE 100 MG CAPSULE PO (10:20)
--- NOTE | 2022-03-01 12:28 | PM.OBDS.1 ---
Discharge Providers Provider Date of admission: 02/28/22 06:47 Discharge Date: 03/01/22 Primary care physician: Kristian Baker Consults: 03/01/22 17:57 Consult to Res Habilitation Assistant Routine Comment: Discharge provider: Bre Benitez MD Summary Hospital Course Date Patient Seen: 03/01/22 Time Patient Seen: 12:28 Diagnoses: Vaginal delivery Hospital Course: This patient was admitted for induction of labor for borderline oligohydramnios. She progressed on pitocin and was delivered of a healthy baby girl without complication. Her course was uncomplicated, and she was discharged on PPD#1 with routine follow up. Peripartum Data Infant Delivery Method: Natural Vaginal Laceration Description: None Procedures: Vaginal delivery complications: none 1: Gender: Female Disposition of : home Status at Discharge Cognitive/behavioral status at discharge: oriented Time Spent with Patient Time attestation: Total time spent providing and/or coordinating discharge services: Objective Labs Result Diagrams: 03/01/22 06:49 Labs: Laboratory Results - last 24 hr 03/01/22 06:49 Hgb 10.0 L Hct 29.1 L Exam Vital Signs (past 8 hours): 109/72, HR 62 Narrative Exam Narrative: Patient reports feeling well, ambulating, tolerating PO, voiding, passing flatus, mild lochia. Const General: cooperative, healthy appearing, comfortable and well groomed Resp Effort & Inspection: normal respiratory effort Auscultation: clear to auscultation bilaterally Cardio Rate: regular rate Rhythm: regular rhythm GI Inspection: other (fundus firm, well below u) Palpation: soft and No tender Extrem General: normal to inspection Discharge Plan Discharge Plan Patient Disposition: Home Discharge orders & Medications Follow up/Referrals: Mima Munoz DO [Physician] - 6 Weeks ( check) Diet/Activity/Treatments Diet: Regular Activity: Nothing in the vagina for 6 weeks. Avoid lifting more than 10 pounds for 6 weeks. If you have increasing bleeding, pain, fevers, chills, headaches, nausea, or any other symptoms, call or come to the emergency department. Skin/Wound/Dressing Care Report to your healthcare provider any signs of infection, such as:: chills, fever, night sweats, increased pain, unusual drainage and unusual redness Visit Report/Discharge Packet Instructions: DI for Labor and Delivery, Vaginal Discharge Data Primary Care Provider: Kristian Baker Attending Provider: Mima Munoz
[2022-03-01 19:00] VITALS: BP 121/67; PULSE 74; RESP 16; TEMP 35.8
== END 2022-03-01 20:00 | disposition home or self-care (01) | DRG 807 ==
PROVIDERS: Admitting Provider Family Medicine; PCP Family Medicine; Referring Provider Family Medicine; Visit Provider Family Medicine
DX: O41.03X0 Oligohydramnios, third trimester, not applicable or unspecified (principal); Z37.0 Single live birth; Z3A.39 39 weeks gestation of pregnancy; Z20.822 Contact with and (suspected) exposure to COVID-19
CPT/HCPCS: 01967; 36415; 59050; 59400; 85014; 85018; 85025; 86850; 86900; 86901; 87635; C9803; G0378; G0379; J2590

== ENCOUNTER → 2022-08-20 17:14 | Outpatient (CLI) | payer OTHER, SELFPAY ==
--- NOTE | 2022-08-20 | DI.US.S_ITS ---
PROCEDURE: US OB <= 14 WEEKS FETUS INDICATIONS: DATING AND VIABILITY OUTSIDE/PRIOR DATING DATA: Last menstrual period (LMP): 06/14/2022 LMP-based estimated date of delivery (GI): 03/21/2023. First dating scan (date and location): 08/20/2022 Estimated date of delivery (GI) from first dating scan: 03/25/2023 The calculations are made using the study derived GI of 03/25/2023. TECHNIQUE: Real-time scanning was performed of the fetus and maternal pelvic organs, with image documentation. COMPARISON: [facility], OB <= 14 WEEKS FETUS, 08/26/2021, 11:27. FINDINGS: Embryo: Single intrauterine gestational sac is seen with fetus and yolk sac seen. [place]-rump length measures 2.3 cm. Estimated gestational age is 9 weeks, 0 days. Heart rate: 171 beats per minute. There is a small subchorionic hemorrhage measures 0.8 x 0.9 x 0.9 cm in size. Maternal organs: Ovaries are visualized. Corpus luteal cyst is noted in right ovary measures 1.6 x 1 x 1.3 cm in size. IMPRESSION: 1. Single live intrauterine gestation with fetus and yolk sac seen. heart rate is 171 beats per minute. Estimated gestational age is 9 weeks, 0 day. 2. Tiny perigestational hemorrhage as above. 3. Small corpus luteal cyst in right ovary. Normal appearing left ovary. We strive to produce accurate, complete, and clear reports of imaging services. To assist us in improving patient care, this report was composed using standard report templates and voice recognition software. Therefore, it may contain abnormal punctuation, insertions and/or omissions. Occasional wrong-word or sound-alike substitutions may occur. Though we review the report and make efforts to correct it, we do recommend that the report be read carefully in proper context to recognize any text inaccuracies. Dictated by: Kenneth Hartman M.D. on 08/21/2022 at 8:34 Approved by: Kenneth Hartman M.D. on 08/21/2022 at 8:36
== END ==
PROVIDERS: PCP Family Medicine; Referring Provider Family Medicine; Visit Provider Family Medicine
DX: O46.8X1 Other antepartum hemorrhage, first trimester; O34.81 Maternal care for other abnormalities of pelvic organs, first trimester; N83.11 Corpus luteum cyst of right ovary; Z3A.09 9 weeks gestation of pregnancy
CPT/HCPCS: 76801; 76817

== ENCOUNTER → 2022-10-16 11:42 | Outpatient (CLI) | payer OTHER, SELFPAY ==
[2022-10-16 12:36] LABS: Appearance Urine UA CLOUDY; Bilirubin Urine UA NEGATIVE (NEGATIVE); Color Urine UA YELLOW; Glucose Urine UA TRACE g/dL (Negative); Ketones Urine UA NEGATIVE (NEGATIVE); Leukocyte Esterase Urine UA NEGATIVE (NEGATIVE); Nitrite Urine UA NEGATIVE (Negative); Occult Blood Urine UA NEGATIVE (Negative); Protein Urine UA TRACE (Negative); Urobilinogen Urine UA 0.2 E.U./dL (0.2)
[2022-10-16 12:38] LABS: Add Manual Diff / Slide Review NO; Basophils Absolute Auto 100 /uL (0-100); Basophils Percent Auto 0.7 % (0-2); Eosinophils Absolute Auto 100 /uL (0-450); Eosinophils Percent Auto 0.9 % (2-4); Hematocrit 31.4 % (36-46); Hemoglobin 10.8 g/dL (12.0-16.0); Lymphocytes Absolute Auto 1300 /uL (1100-4500); Lymphocytes Percent Auto 17.8 % (25-40); Mean Corpuscular HGB Conc 34.5 % (30-36); Mean Corpuscular Hemoglobin 29.4 PG (26-34); Mean Corpuscular Volume 85.2 fL (80-100); Monocytes Absolute Auto 400 /uL (0-900); Monocytes Percent Auto 4.8 % (3-14); Neutrophils Absolute Auto 5600 /uL (1500-7000); Neutrophils Percent Auto 75.8 % (50-75); Platelet Count 237 X10^3/uL (150-400); Red Blood Cell Count 3.69 X10^6/uL (4.0-5.2); Red Cell Distribution Width 13.6 % (11.6-14.8); White Blood Cell Count 7.3 X10^3/uL (4.5-11.0)
[2022-10-16 17:33] LABS: Hepatitis B Surface Antigen NEGATIVE s/c (NEGATIVE)
[2022-10-16 17:40] LABS: HIV 1 & 2 Ab/Ag 4th Gen Combo NEGATIVE (NEGATIVE); Hep C Virus Ab w/Reflex Quant NEGATIVE s/c (NEGATIVE)
[2022-10-17 10:03] LABS: Varicella IgG Antibody <135 index (Immune >165)
[2022-10-17 11:09] LABS: RPR Screen Non Reactive (Non Reactive)
[2022-10-22 21:14] LABS: AFP, Serum 66.3 ng/mL (.); Calc Gestational Age As provided (.); Estriol, Free 2.35 ng/mL (.); Inhibin A, Dimeric 92.78 pg/mL (.); Inhibin A, MoM 0.57 (.); Maternal Ethnicity Caucasian (.); Maternal Weight 140 lbs (.); Number of Fetuses No (.); OSBR Risk 1 IN 2212 (.); Results Report (.); Test Results *Screen Negative* (.); hCG, MoM 0.37 (.); hCG, Serum 13804 mIU/mL (.)
== END ==
PROVIDERS: PCP Family Medicine; Referring Provider Family Medicine; Visit Provider Family Medicine
DX: Z34.81 Encounter for supervision of other normal pregnancy, first trimester (principal)
CPT/HCPCS: 36415; 80055; 81003; 82105; 82677; 84702; 86336; 86787; 86803; 86850; 86900; 86901; 87086; 87389

== ENCOUNTER → 2022-11-05 15:10 | Outpatient (CLI) | payer OTHER, SELFPAY ==
--- NOTE | 2022-11-05 15:11 | DI.US.S_ITS ---
PROCEDURE: US OB >= 14 WEEKS FETUS INDICATIONS: Anactomy scan OUTSIDE/PRIOR DATING DATA: Last menstrual period (LMP): 06/14/2022. LMP-based estimated date of delivery (GI): 03/21/2023. First dating scan (date and location): 08/20/2022. Estimated date of delivery (GI) from first dating scan: 03/25/2023. The calculations are made using the working GI of 03/21/2023. TECHNIQUE: Real-time scanning was performed of the fetus, with image documentation and biometric measurements. Endovaginal scanning: Not performed COMPARISON: [facility], OB >= 14 WEEKS FETUS, 10/11/2021, 13:00. [facility], OB <= 14 WEEKS FETUS, 08/20/2022, 17:40. FINDINGS: General: A single living intrauterine gestation is present. Presentation: Cephalic. Placenta: Placental position is posterior , without previa. There is a 7.1 x 2.1 x 4.4 cm hypoechoic area in the superior fundal aspect placenta Amniotic fluid index: 14.2 cm, normal range is 5-24 cm. Single deepest vertical pocket is 5.1 cm. heart rate: 155 beats per minute. Maternal cervical canal: 4.7 cm long. Normal lower limit is 2.5 cm. biometrics: Biparietal diameter: 21 weeks 0 day Head circumference: 21 weeks 0 day Abdominal circumference: 19 weeks 4 days Femur length: 20 weeks 2 days Clinically estimated gestational age: 20 weeks 4 days Composite gestational age from present scan: 20 weeks 3 days Estimated weight and percentile: 329 g; percentile not provided. Anatomic survey: Neuro: Ventricles are non-dilated at less than 10 mm. Cisterna magna is normal at 3-11 mm. Cerebellum is normal in size and morphology. Nuchal skin fold: Normal at less than 6 mm between 14-21 weeks gestational age. Face: Orbits are visualized and normal. Nose and lips, facial profile are not well seen. Spine: No evidence for spina bifida. Heart: 4-chambered heart is present, with normal left ventricular outflow tract. The right ventricular outflow tract is not well seen. Diaphragm: Diaphragm is intact. Stomach: Left-sided stomach is present. Kidneys: No hydronephrosis. Normal is less than 5 mm in 2nd trimester, less than 7 mm in 3rd trimester. Cord: 3-vessel cord has orthotopic insertion. Bladder: Normal in size. Extremities: All 4 extremities identified. IMPRESSION: 1. A single living intrauterine gestation with appropriate interval growth. 2. A 7.1 x 2.1 x 4.4 cm hypoechoic area in the superior fundal aspect of the placenta. On Doppler ultrasound, there is no definitive internal vascularity. This may represent a hematoma. Recommend a short interval follow-up ultrasound. 3. facial profile and right ventricular outflow tract are not well seen. Otherwise no anomaly identified on anatomic survey. Follow-up imaging suggested. We strive to produce accurate, complete, and clear reports of imaging services. To assist us in improving patient care, this report was composed using standard report templates and voice recognition software. Therefore, it may contain abnormal punctuation, insertions and/or omissions. Occasional wrong-word or sound-alike substitutions may occur. Though we review the report and make efforts to correct it, we do recommend that the report be read carefully in proper context to recognize any text inaccuracies. Dictated by: Ramana Granados M.D. on 11/07/2022 at 11:03 Approved by: Ramana Granados M.D. on 11/07/2022 at 11:30
== END ==
PROVIDERS: PCP Family Medicine; Referring Provider Family Medicine; Visit Provider Family Medicine
DX: Z34.92 Encounter for supervision of normal pregnancy, unspecified, second trimester (principal); Z3A.20 20 weeks gestation of pregnancy
CPT/HCPCS: 76811

== ENCOUNTER → 2022-11-21 12:12 | Outpatient (CLI) | payer OTHER, SELFPAY ==
--- NOTE | 2022-11-21 12:12 | DI.US.S_ITS ---
PROCEDURE: US OB FOLLOW UP INDICATIONS: RE-EVALUATE PROFILE, PLACENTA, OUTFLOW TRACTS OUTSIDE/PRIOR DATING DATA: Last menstrual period (LMP): 06/14/2022. LMP-based estimated date of delivery (GI): 03/21/2023 First dating scan (date and location): 08/20/2022. Estimated date of delivery (GI) from first dating scan: 03/25/2023 TECHNIQUE: Real-time scanning was performed of the fetus, with image documentation and biometric measurements. COMPARISON: [facility], OB FOLLOW UP, 01/14/2022, 10:13. [facility], OB >= 14 WEEKS FETUS, 11/05/2022, 15:51. FINDINGS: General: A single living intrauterine gestation is present. Presentation: Breech. Placenta: Placental position is posterior , without previa. Presumed venous leak is noted measuring 5.1 x 1.5 x 1.8 cm. Amniotic fluid index: 7.6 cm, normal range is 5-24 cm. Single deepest vertical pocket is 2.8 cm. heart rate: 140 beats per minute. Maternal cervical canal: 3.1 cm long. Normal lower limit is 2.5 cm. biometrics: Composite gestational age from initial scan: 22 weeks 6 days Other: profile as well as outflow tracks appear to be within normal limits. IMPRESSION: Single live intrauterine with ultrasound gestational age 22 weeks 6 days. profile and outflow tracts are within normal limits. It is noted that JAYLYN measures 7.6 cm. Close interval follow-up is recommended, as level raise concern for ileal hydramnios. We strive to produce accurate, complete, and clear reports of imaging services. To assist us in improving patient care, this report was composed using standard report templates and voice recognition software. Therefore, it may contain abnormal punctuation, insertions and/or omissions. Occasional wrong-word or sound-alike substitutions may occur. Though we review the report and make efforts to correct it, we do recommend that the report be read carefully in proper context to recognize any text inaccuracies. Dictated by: Sylvia Padilla M.D. on 11/21/2022 at 14:58 Approved by: Sylvia Padilla M.D. on 11/21/2022 at 15:02
== END ==
PROVIDERS: PCP Family Medicine; Referring Provider Family Medicine; Visit Provider Family Medicine
DX: O28.3 Abnormal ultrasonic finding on antenatal screening of mother (principal); O43.102 Malformation of placenta, unspecified, second trimester; Z3A.22 22 weeks gestation of pregnancy
CPT/HCPCS: 76816

== ENCOUNTER → 2022-12-02 12:57 | Outpatient (CLI) | payer OTHER, SELFPAY ==
--- NOTE | 2022-12-02 12:58 | DI.US.S_ITS ---
PROCEDURE: US OB FOLLOW UP INDICATIONS: low amniotic fluid OUTSIDE/PRIOR DATING DATA: Last menstrual period (LMP): 06/14/2022 LMP-based estimated date of delivery (GI): 03/21/2023. First dating scan (date and location): 08/20/2022 Estimated date of delivery (GI) from first dating scan: 03/25/2023 The calculations are made using the working GI of 03/25/2023. TECHNIQUE: Real-time scanning was performed of the fetus, with image documentation. Endovaginal scanning: Not indicated COMPARISON: [facility], OB FOLLOW UP, 11/21/2022, 12:20. FINDINGS: A single living intrauterine gestation is present. Presentation: Vertex Placenta: Placental position is posterior, without previa. Amniotic fluid index: 12.7 cm, normal range is 5-24 cm. Single deepest vertical pocket is 4.2 cm. heart rate: 130 beats per minute. Maternal cervical canal: 3.1 cm long. Normal lower limit is 2.5 cm. Clinically estimated gestational age: Not applicable Estimated gestational age from initial scan: 24 weeks, 3 days facial profile, four-chamber heart, stomach, bilateral kidneys and urinary bladder are visualized and are within normal limits. IMPRESSION: 1. Single live intrauterine gestation with fetus in vertex presentation. heart rate is 130 beats per minute. Normal amount of amniotic fluid. JAYLYN equals 12.7 cm. Largest pocket is 4.2 cm. 2. facial profile, four-chamber heart are visualized on the current study and are within normal limits. Dictated by: Kenneth Hartman M.D. on 12/02/2022 at 16:24 Approved by: Kenneth Hartman M.D. on 12/02/2022 at 16:26
== END ==
PROVIDERS: PCP Family Medicine; Referring Provider Family Medicine; Visit Provider Family Medicine
DX: O41.02X0 Oligohydramnios, second trimester, not applicable or unspecified; Z3A.24 24 weeks gestation of pregnancy
CPT/HCPCS: 76816

== ENCOUNTER → 2023-01-07 11:59 | Outpatient (CLI) | payer OTHER, SELFPAY ==
[2023-01-07 13:49] LABS: GTT (PREG) 1 Hour PP 50gm Dose 129 mg/dL (76-139)
== END ==
PROVIDERS: PCP Family Medicine; Referring Provider Family Medicine; Visit Provider Family Medicine
DX: Z34.81 Encounter for supervision of other normal pregnancy, first trimester (principal); Z3A.25 25 weeks gestation of pregnancy
CPT/HCPCS: 36415; 82950

== ENCOUNTER 2023-02-17 18:06 | Outpatient (CLI) | payer OTHER, SELFPAY ==
--- NOTE | 2023-02-17 21:23 | PM.OBTRLD ---
Visit Information Visit Information Date of evaluation: 02/17/23 Primary OB Provider: Davida Carr On-call OB Provider: Pam Galvan Reason for Evaluation: Yes non-stress test non-stress test reason: decreased movement Comments/Additional reasons for admission: 22YO @ [id number] here for evaluation of decreased movement. No cramping, vaginal bleeding or leaking of fluid. Routine care w/ . Vital Signs Vital Signs: BP 121/74, HR 83, RR 16, T 98.3 PFSH Medical History Oligohydramnios antepartum anxiety Spontaneous vaginal delivery Thumb fracture Surgical History No pertinent past surgical history Family History Father Healthy adult Mother Altered cardiac tissue perfusion Grandfather Murder Grandmother Unknown whether patient has any health problems Grandfather Unknown whether patient has any health problems Grandmother Unknown whether patient has any health problems Sister Healthy adult Sister PCOS (polycystic ovarian syndrome) Daughter Optic nerve hypoplasia of both eyes Social History marital status: details: Catarino Briceño [phone] number of children: 2 household members: spouse and children lives independently: Yes caregiver/support person: Yes housing: house pets and animals: Yes (X 2 dogs) education level: high school occupational status: unemployed current occupational exposures/hazards: No Previous occupational history: [employer] special leisa needs: No travel history: over 6 months ago seatbelt use: always water heater temp set < 120 deg: Yes working smoke detector in home: Yes fire extinguisher in home: Yes carbon monox detector in home: Yes firearms in home: Yes firearms unloaded and locked: Yes do you feel safe at home: Yes Smoking Status: Current some day smoker Tobacco: How many years used: 4 Smokeless tobacco user: dissolvable tobacco quit status: considering quitting second hand exposure: Yes alcohol intake: former substance use type: does not use during the past year weight has: other well-balanced diet: daily or most days daily servings fruits/ve or more times/day caffeine: Yes Type(s) of exercise: none and walking Review of Systems Review of Systems ROS: Yes All systems reviewed with the patient and are negative except as otherwise documented Exam Vital Signs (past 8 hours): see above Evaluation Evaluation Baseline heart rate: 120 Variability: Moderate (11-25) monitor accelerations: Present Monitor Decelerations: Absent Category of Tracing: Reactive Comments: Continuous EFM from [id number] Diagnosis, Plan/Disposition Final Diagnosis (1) Decreased movement affecting management of in third trimester: Status: Acute Plan/Disposition Plan: Reassurance given for reactive NST. Discharge to home with routine precautions. RTC as previously scheduled. OB Disposition: home
== END 2023-02-17 18:50 | disposition home or self-care (01) ==
LOC: OB 02-20 15:21
PROVIDERS: PCP Family Medicine; Referring Provider Family Medicine; Visit Provider Family Medicine
DX: O36.8130 Decreased fetal movements, third trimester, not applicable or unspecified (principal); Z3A.35 35 weeks gestation of pregnancy
CPT/HCPCS: 59025; G0378; G0379

== ENCOUNTER → 2023-02-24 13:56 | Outpatient (CLI) | payer OTHER, SELFPAY ==
[2023-02-25 14:53] LABS: Strep Grp B PCR NEG for Grp B Strep
== END ==
PROVIDERS: PCP Family Medicine; Visit Provider Family Medicine
DX: Z3A.36 36 weeks gestation of pregnancy (principal); Z34.93 Encounter for supervision of normal pregnancy, unspecified, third trimester
CPT/HCPCS: 87653

== ENCOUNTER → 2023-03-11 11:06 | Outpatient (CLI) | payer OTHER, SELFPAY ==
--- NOTE | 2023-03-11 11:07 | DI.US.S_ITS ---
PROCEDURE: US OB LIMITED INDICATIONS: SMALL FOR GESTATIONAL AGE OUTSIDE/PRIOR DATING DATA: Last menstrual period (LMP): 06/14/2022 LMP-based estimated date of delivery (GI): 03/21/2023 First dating scan (date and location): 08/20/2022 Estimated date of delivery (GI) from first dating scan: 03/25/2023 The calculations are made using the clinical GI of 03/21/2023 TECHNIQUE: Real-time scanning was performed of the fetus, with image documentation and biometric measurements. Endovaginal scanning: Not performed COMPARISON: [facility], OB FOLLOW UP, 12/02/2022, 13:13. [facility] OB LIMITED, 02/24/2022, 11:44. [facility] OB LIMITED, 02/21/2022, 14:32. [facility], OB LIMITED, 04/10/2020, 13:04. [facility] OB LIMITED, 11/21/2019, 7:42. FINDINGS: General: A single living intrauterine gestation is present. Presentation: Vertex Placenta: Placental position is posterior. Amniotic fluid index: 10.9 cm, normal range is 5-24 cm. Single deepest vertical pocket is 4.3 cm. heart rate: 135 beats per minute. Maternal cervical canal: Not well visualized. biometrics: Biparietal diameter: 9.4 cm, 38 weeks 2 days Head circumference: 33.6 cm, 38 weeks 3 days Abdominal circumference: 30.6 cm, 34 weeks 4 days Femur length: 7.1 cm, 36 weeks 2 days Clinically estimated gestational age: 38 weeks 4 days Composite gestational age from present scan: 36 weeks 6 days Estimated weight and percentile: 2775 g, 9th percentile Other: Somewhat prominent elongated bilobed configuration of the urinary bladder is seen during the exam, although evaluation is partially obscured by calcified iliac bones with posterior shadowing. Renal pelvis measurements are within normal limits without pelviectasis. IMPRESSION: 1. Single live intrauterine . 2. Estimated weight 2775 g, 9th percentile for gestational age. 3. Abdominal circumference at the 1st percentile for gestational age, although measurement was technically limited due to positioning. Femur length at the 8th percentile. Consider follow-up ultrasound. 4. Prominent bladder size with slightly bilobed appearance, which could possibly indicate a posterior urethral valve. No renal pelviectasis is seen. Amniotic fluid index is within normal limits. Recommend attention on follow-up exams and possible ultrasound if persistent. Approved by: Jasson Marc M.D. on 03/11/2023 at 15:33
== END ==
PROVIDERS: PCP Family Medicine; Referring Provider Family Medicine; Visit Provider Family Medicine
DX: Z34.83 Encounter for supervision of other normal pregnancy, third trimester (principal); Z3A.36 36 weeks gestation of pregnancy
CPT/HCPCS: 76815

== ENCOUNTER 2023-03-11 17:18 | Outpatient (CLI) | payer OTHER, SELFPAY ==
--- NOTE | 2023-03-11 17:26 | P.TNLD_ITS ---
Visit Information Visit Information Date of evaluation: 03/11/23 Primary OB Provider: Davida Carr On-call OB Provider: Ariana Trimble Reason for Evaluation: Yes non-stress test non-stress test reason: other (SGA) Vital Signs Vital Signs: Blood pressure 103/55, pulse of 80, temperature 36.4? [facility] Medical History Oligohydramnios antepartum anxiety Spontaneous vaginal delivery Thumb fracture Surgical History No pertinent past surgical history Family History Father Healthy adult Mother Altered cardiac tissue perfusion Grandfather Murder Grandmother Unknown whether patient has any health problems Grandfather Unknown whether patient has any health problems Grandmother Unknown whether patient has any health problems Sister Healthy adult Sister PCOS (polycystic ovarian syndrome) Daughter Optic nerve hypoplasia of both eyes Social History marital status: details: Catarino Briceño [phone] number of children: 2 household members: spouse and children lives independently: Yes caregiver/support person: Yes housing: house pets and animals: Yes (X 2 dogs) education level: high school occupational status: unemployed current occupational exposures/hazards: No Previous occupational history: [employer] special leisa needs: No travel history: over 6 months ago seatbelt use: always water heater temp set < 120 deg: Yes working smoke detector in home: Yes fire extinguisher in home: Yes carbon monox detector in home: Yes firearms in home: Yes firearms unloaded and locked: Yes do you feel safe at home: Yes Smoking Status: Current some day smoker Tobacco: How many years used: 4 Smokeless tobacco user: dissolvable tobacco quit status: considering quitting second hand exposure: Yes alcohol intake: former substance use type: does not use during the past year weight has: other well-balanced diet: daily or most days daily servings fruits/ve or more times/day caffeine: Yes Type(s) of exercise: none and walking Evaluation Evaluation Baseline heart rate: 130 Variability: Moderate (11-25) monitor accelerations: Present Monitor Decelerations: Absent Diagnosis, Plan/Disposition Final Diagnosis (1) 38 weeks gestation of : Status: Acute (2) Small for gestational age fetus affecting management of mother in cates in third trimester: Status: Acute Plan/Disposition Plan: Reassuring nonstress test. Patient is scheduled for induction in a few days. OB Disposition: home
== END 2023-03-11 17:45 | disposition home or self-care (01) ==
LOC: LABOR 17:45 → OB 03-16 11:21
PROVIDERS: PCP Family Medicine; Referring Provider Specialist; Visit Provider Specialist
DX: O36.5930 Maternal care for other known or suspected poor fetal growth, third trimester, not applicable or unspecified (principal); Z3A.38 38 weeks gestation of pregnancy; Z34.83 Encounter for supervision of other normal pregnancy, third trimester; Z3A.36 36 weeks gestation of pregnancy
CPT/HCPCS: 59025; 76815; G0378; G0379

== ENCOUNTER 2023-03-12 19:30 | Inpatient (IN) | payer OTHER, SELFPAY ==
[2023-03-12 20:14] VITALS: BP 108/62
[2023-03-12 20:39] LABS: Add Manual Diff / Slide Review NO; Basophils Absolute Auto 100 /uL (0-100); Basophils Percent Auto 0.7 % (0-2); Eosinophils Absolute Auto 100 /uL (0-450); Eosinophils Percent Auto 0.5 % (2-4); Hematocrit 29.8 % (36-46); Hemoglobin 10.5 g/dL (12.0-16.0); Lymphocytes Absolute Auto 2000 /uL (1100-4500); Lymphocytes Percent Auto 16.9 % (25-40); Mean Corpuscular HGB Conc 35.1 % (30-36); Mean Corpuscular Hemoglobin 30.5 PG (26-34); Mean Corpuscular Volume 86.8 fL (80-100); Monocytes Absolute Auto 700 /uL (0-900); Monocytes Percent Auto 5.6 % (3-14); Neutrophils Absolute Auto 9100 /uL (1500-7000); Neutrophils Percent Auto 76.3 % (50-75); Platelet Count 224 X10^3/uL (150-400); Red Blood Cell Count 3.43 X10^6/uL (4.0-5.2); Red Cell Distribution Width 12.9 % (11.6-14.8)
[2023-03-12] MEDS: DINOPROSTONE VAG (CERVIDIL) 10 MG VAG (20:48)
[2023-03-12] MEDS: LACTATED RINGERS 1,000 ML 100 ML IV (23:52)
[2023-03-13] MEDS: FENT 2MCG/ML BUPIV 0.125% EPI 200 MCG/100 ML PLAST..BAG 10 MCG EPIDURAL (01:02)
--- NOTE | 2023-03-13 01:04 | PM.AN.REGBLK ---
Regional Block Pre-procedure Procedure: Continuous Lumbar Epidural for L&D PMH/ROS narrative: Labor pain PSH/Anesthesia history narrative: None Exam narrative: WNL ASA Class: II Labs: Hct 29.8 % (36-46) L 03/12/23 20:15 Plt Count 224 X10^3/uL (150-400) 03/12/23 20:15 Medications: Current Medications Generic Name Dose Route Start Last Admin Trade Name Freq PRN Reason Stop Dose Admin Calcium Carbonate 1,000 mg 03/12/23 19:45 Calcium Carbonate 500 Mg Tab PO Q4HR PRN Dyspepsia Carboprost Tromethamine 250 mcg 03/12/23 19:45 Carboprost 250 Mcg/Ml Ampul IM Q90M PRN Bleeding Lactated Ringer's 1,000 mls @ 100 mls/hr 03/12/23 19:45 03/12/23 23:52 Lactated Ringers IV 100 mls/hr CONT MIKEY Administration Tranexamic Acid 1,000 mg/ 100 mls @ 200 mls/hr 03/12/23 19:45 Sodium Chloride IV NOW PRN Bleeding Oxytocin/Lactated Ringer's 30 unit in 500 mls @ 2 mls/hr 03/12/23 19:45 Oxytocin Premix IV TITRATE MIKEY Protocol 2 MILLIUNIT/MIN Oxytocin/Lactated Ringer's 30 unit in 500 mls @ 200 mls/hr 03/12/23 19:45 Oxytocin Premix IV CONT PRN Bleeding Protocol Lidocaine HCl 20 ml 03/12/23 19:45 Lidocaine 1% 20 Ml INJ INTRA-OP PRN Post Delivery Methylergonovine Maleate 0.2 mg 03/12/23 19:45 Methylergonovine 0.2 Mg/Ml Vial IM NOW PRN Bleeding Methylergonovine Maleate 0.2 mg 03/12/23 19:45 Methylergonovine 0.2 Mg Tablet PO Q6HR PRN Heavy Bleeding Misoprostol 800 mcg 03/12/23 19:45 Misoprostol 200 Mcg Tablet RI NOW PRN Bleeding Misoprostol 400 mcg 03/12/23 19:45 Misoprostol 200 Mcg Tablet SL NOW PRN Bleeding Naloxone HCl 0.2 mg 03/12/23 19:45 Naloxone 0.4 Mg/Ml Vial IV Q2MIN PRN Opiate Reversal Ondansetron HCl 4 mg 05/18/23 19:45 Ondansetron 4 Mg/2 Ml Inj IV Q4HR PRN Nausea And Vomiting Oxytocin 10 unit 03/12/23 19:45 Oxytocin 10 Unit/Ml Vial IM NOW PRN Bleeding Allergies: Allergies Allergy/AdvReac Type Severity Reaction Status Date / Time No Known Drug Allergies Allergy Verified 03/12/23 20:15 Procedure Insertion date: 03/13/23 Insertion time: 12:40 Prep/Local: betadine x3 and 1% lidocaine Interspace: L4-5 Needle: 18 gauge Mana Loss of resistance with: air CORIE at (cm): 8 Catheter placed at SKIN (cm): 13 Catheter in SPACE (cm): 5 Initial Medications TEST DOSE time: 12:47 BOLUS DOSE time: 12:50 BOLUS DOSE (mL): 10 BOLUS DOSE med: 0.25% bupivacaine Infusion INFUSION: 0.125% bupivacaine and with fentanyl 2 mcg/mL Initial rate (mL/hr): 10 Post-procedure Anesthesia time START: 00:30 Anesthesia time END: 06:04 Post-procedure Anesthesia Assessment: Yes CV function: HR/BP stable, Yes Resp function: RR/sat/airway adequate, Yes Post-op hydration adequate, Yes Pain control adequate, Yes Nausea & vomiting absent, Yes Temperature > 36 C and Yes Mental status appropriate
[2023-03-13] MEDS: diphenhydrAMINE 50 MG/ML VIAL 25 MG IV (04:15)
--- NOTE | 2023-03-13 06:21 | PM.OBHP.IH.1 ---
OB HPI Date/Time Date of admission: 03/12/23 Date Patient Seen: 03/13/23 History of Present Condition Chief complaint: OB GI Calculator Estimated Delivery Date Method Current WG Current Estimate 03/21/23 Manual 38w 6d Final GI - ENHA Other Estimates 03/21/23 LMP (Uncertain) 38w 6d 03/25/23 Ultrasound #1 38w 2d Estimated Gestational Age (weeks): 38w6d : 3 Para: 2 Narrative: 22yo at 38w6d here for IOL for IUGR. Pt denies any vaginal bleeding, LOF, or contractions. She is feeling her baby move regularly. Her was complicated by a placental hematoma on anatomy scan that resolved on repeat imaging. Growth u/s completed on 03/11 due to size < dates showed baby at 9th percentile, with abdomen at the 1st percentile. Also noted to have a prominent bladder with bilobed appearance. care: good care, initiated at week # (12) and pounds weight gain (31) Dating criteria OB: LMP confirmed by 1st trimester US Ultrasounds: normal 1st trimester US and abnormal US findings (placental hematoma) Obstetrical complications: growth restriction Medical complications OB: none Preadmission Labs Last OB Lab Results: Blood Type O Positive 03/12/23 20:15 Antibody Screen Negative 03/12/23 20:15 Hematocrit 29.8 % (36-46) L 03/12/23 20:15 Hemoglobin 10.5 g/dL (12.0-16.0) L 03/12/23 20:15 Hepatitis B Surface Antigen Negative s/c (NEGATIVE) 10/16/22 11:49 Hepatitis C Antibody Negative s/c (NEGATIVE) 10/16/22 11:49 Rubella Antibody 32.0 IU/mL (>15) 10/16/22 11:49 Varicella-Zoster IgG Antibody <135 index (Immune >165) L 10/16/22 11:49 Glucose 1 Hour 129 mg/dL (76-139) 01/07/23 12:09 Group B Streptococcus (PCR) Neg for grp b strep 02/24/23 13:56 -: Urine: negative Genetic Screens: Quad screen: Normal External Labs -: Urine: negative Prior (ies) Past Pregnancies Del. Date GA/Weeks Labor Lgth Wt Sex Route Outcome Anesthesia Place Delv Breastfeed Preg Comp Name 05/11/20 41.3 7 6 lb 10 oz Male vaginal live - full term epidural Dr Munoz delivered baby Formula right from the start post-dates induction none Fernando Gold Abrams 02/28/22 39 9 6 lb 13 oz Female vaginal live - full term epidural IH 1 month other Rhianna Delivery Date: 05/11/20 Last Updated by: Praveena Jin R.N. * Post dates-induction : Pitocin. *Cat II FHR. *Anxiety and Depression PP. *Back issue spasm and couldn't walk for X 4 days. Went to ER for that. Delivery Date: 02/28/22 Last Updated by: Namita Chavez RN MIKEY, vanishing twin Evaluation Evaluation Baseline heart rate: 135 Variability: Moderate (11-25) monitor accelerations: Present Monitor Decelerations: Late and Variable Contraction Frequency (minutes): 3 Uterine Contraction Intensity: Strong/Firm Status: Category ll Dilation (cm): 10 Effacement (%): 100 station: +2 PFSH Medical History Oligohydramnios antepartum anxiety Spontaneous vaginal delivery Thumb fracture Surgical History No pertinent past surgical history Family History Father Healthy adult Mother Altered cardiac tissue perfusion Grandfather Murder Grandmother Unknown whether patient has any health problems Grandfather Unknown whether patient has any health problems Grandmother Unknown whether patient has any health problems Sister Healthy adult Sister PCOS (polycystic ovarian syndrome) Daughter Optic nerve hypoplasia of both eyes Social History marital status: details: Catarino Briceño [phone] number of children: 2 household members: spouse and children lives independently: Yes caregiver/support person: Yes housing: house pets and animals: Yes (X 2 dogs) education level: high school occupational status: unemployed current occupational exposures/hazards: No Previous occupational history: [employer] special leisa needs: No travel history: over 6 months ago seatbelt use: always water heater temp set < 120 deg: Yes working smoke detector in home: Yes fire extinguisher in home: Yes carbon monox detector in home: Yes firearms in home: Yes firearms unloaded and locked: Yes do you feel safe at home: Yes Smoking Status: Former smoker Tobacco: How many years used: 4 Smokeless tobacco user: dissolvable tobacco quit status: considering quitting second hand exposure: Yes alcohol intake: former substance use type: does not use during the past year weight has: other well-balanced diet: daily or most days daily servings fruits/ve or more times/day caffeine: Yes Type(s) of exercise: none and walking Meds Home Medications and Allergies Allergies Allergy/AdvReac Type Severity Reaction Status Date / Time No Known Drug Allergies Allergy Verified 03/12/23 20:15 OB Exam Narrative Exam Narrative: Gen: NAD, sitting comfortably in bed, appears well CV: RRR, no murmurs Resp: clear to auscultation bilaterally Abd: soft, nontender, gravid Ext: no edema Objective Labs 03/12/23 20:15 Labs: Laboratory Results - last 24 hr 03/12/23 03/12/23 20:15 20:15 WBC 12.0 H RBC 3.43 L Hgb 10.5 L Hct 29.8 L MCV 86.8 MCH 30.5 MCHC 35.1 RDW 12.9 Plt Count 224 Neut % (Auto) 76.3 H Lymph % (Auto) 16.9 L [place] % (Auto) 5.6 Eos % (Auto) 0.5 L Baso % (Auto) 0.7 Neut # (Auto) 9100 H Lymph # (Auto) 2000 [place] # (Auto) 700 Eos # (Auto) 100 Baso # (Auto) 100 Blood Type O Positive Antibody Screen Negative Assessment and Plan Assessment and Plan Assessment and Plan narrative: 22yo at 38w6d here for IOL due to asymmetric SGA/IUGR with EFW at 9th percentile, however abdomen at only 1st percentile. GBS negative, Rh positive. Received cervidil overnight, pulled at 23:16 due to contractions. Now complete. - Expectant management, anticipate , will start pushing now - FHT Category II with variable and late decels, however good variability and accels between, okay to proceed with pushing - Epidural in place for pain control and working well - GBS negative, no prophylaxis indicated
--- NOTE | 2023-03-13 06:31 | PM.OBPRVD ---
Labor & Delivery Delivery date: 03/13/23 Intrapartal Events: None Cervical ripening method: per Cervidil protocol Induction method: none Delivery augmentation: rupture of membranes Delivery monitor: external FHT and external uterine Route of delivery: Episiotomy description: None L&D Laceration Description: None Quantitative Blood Loss: 400 Anesthesia Type: Epidural Complications: None Narrative: PROCEDURE: at 38w6d presented for IOL due to SGA/IUGR and was admitted to Labor and Delivery. The patient progressed through the 1st stage over 6.5 hours. ROM occured at 5:54 with clear fluid. Pain was controlled with an epidural. The patient progressed through the 2nd stage over 1 minute and delivered a viable male infant with APGARs 8/9 at 6:04 via without complications. Nuchal cord x1 was reduced at the perineum. The cord was cut and clamped after it stopped pulsating. The placenta delivered with gentle cord traction, and appeared complete. The perineum and vagina were inspected with no lacerations. Needle and sponge counts were correct.? The vagina was inspected and no items were left in situ. Xiao was doing well with Des, her . PREPROCEDURE DIAGNOSIS: Intrauterine at 38w6d Asymmetric IUGR GBS negative RH positive POSTPROCEDURE DIAGNOSIS: Intrauterine at 38w6d, delivered Same as preprocedure [place] [facility] 1: Infant gender: Male Presentation: vertex Position: Left Occiput Anterior Placenta delivery description: Spontaneous Cord Vessel Description: 3 Vessels and Nuchal Cord score (1 min): 8 score (5 min): 9 weight: 5 lb 12.065 oz Plan for aftercare: Routine care
[2023-03-13] MEDS: FERROUS SULFATE 325 MG TABLET PO (08:07)
[2023-03-13] MEDS: PRENATAL VIT,CALC/IRON/FOLIC 1 TABLET 1 TAB PO (08:07)
[2023-03-13] MEDS: DOCUSATE 100 MG CAPSULE PO (08:07)
[2023-03-13] MEDS: IBUPROFEN 600 MG TABLET PO ×2 (08:07→20:36)
[2023-03-14] MEDS: ACETAMINOPHEN 325 MG TABLET 650 MG PO (00:16)
[2023-03-14] MEDS: IBUPROFEN 600 MG TABLET PO ×2 (02:32→09:41)
[2023-03-14 06:57] LABS: Add Manual Diff / Slide Review NO; Basophils Absolute Auto 100 /uL (0-100); Basophils Percent Auto 0.5 % (0-2); Eosinophils Absolute Auto 200 /uL (0-450); Eosinophils Percent Auto 1.4 % (2-4); Hemoglobin 9.7 g/dL (12.0-16.0); Lymphocytes Absolute Auto 2800 /uL (1100-4500); Lymphocytes Percent Auto 23.4 % (25-40); Mean Corpuscular HGB Conc 34.6 % (30-36); Mean Corpuscular Hemoglobin 30.4 PG (26-34); Mean Corpuscular Volume 87.8 fL (80-100); Monocytes Absolute Auto 1000 /uL (0-900); Monocytes Percent Auto 8.3 % (3-14); Neutrophils Absolute Auto 8100 /uL (1500-7000); Neutrophils Percent Auto 66.4 % (50-75); Platelet Count 216 X10^3/uL (150-400); Red Blood Cell Count 3.19 X10^6/uL (4.0-5.2); Red Cell Distribution Width 13.1 % (11.6-14.8); White Blood Cell Count 12.1 X10^3/uL (4.5-11.0)
--- NOTE | 2023-03-14 09:16 | P.DS_ITS ---
Discharge Providers Provider Date of admission: 03/12/23 19:30 Discharge Date: 03/14/23 Primary care physician: Kristian Baker Consults: 03/14/23 06:19 Consult to Intensive Care Unit Registered Nurse Routine Comment: Discharge provider: Davida Carr MD Summary Hospital Course Date Patient Seen: 03/14/23 Diagnoses: Intrauterine at 38w6d Asymmetric IUGR GBS negative RH positive Hospital Course: The pt presented for IOL due to IUGR. She received cervidil, and transitioned into active labor. She had an epidural for pain control. AROM was performed with clear fluid when the pt was complete. She delivered a viable baby boy without complications. There were no lacerations. , there were no complications. At the time of discharge she was voiding, ambulating, and passing flatus without difficulty. Her lochia was decreasing appropriately. Her pain was well controlled. She will f/u in 6 weeks for check. Peripartum Data Delivery Method: Natural Vaginal Laceration Description: None Procedures: Spontaneous vaginal delivery complications: none [place] 1: Gender: Male Disposition of : home Discharge Diagnosis (1) Spontaneous vaginal delivery: Status: Acute Problem Details: x2 Status at Discharge Cognitive/behavioral status at discharge: oriented Functional status at discharge: independent ambulation Overall status at discharge: patient is progressing back to baseline Time Spent with Patient Time attestation: Total time spent providing and/or coordinating discharge services: Objective Labs 03/14/23 06:29 Labs: Laboratory Results - last 24 hr 03/14/23 06:29 WBC 12.1 H RBC 3.19 L Hgb 9.7 L Hct 28.0 L MCV 87.8 MCH 30.4 MCHC 34.6 RDW 13.1 Plt Count 216 Neut % (Auto) 66.4 Lymph % (Auto) 23.4 L [place] % (Auto) 8.3 Eos % (Auto) 1.4 L Baso % (Auto) 0.5 Neut # (Auto) 8100 H Lymph # (Auto) 2800 [place] # (Auto) 1000 H Eos # (Auto) 200 Baso # (Auto) 100 Exam Narrative Exam Narrative: Gen: NAD, sitting comfortably in bed, appears well CV: RRR, no murmurs Resp: clear to auscultation bilaterally Abd: soft, appropriately tender, fundus firm and below the umbilicus, nondistended Ext: no edema Discharge Plan Discharge Plan Patient Disposition: Home Discharge orders & Medications Prescriptions: New acetaminophen 325 mg Tablet 650 mg PO Q6HR PRN (Reason: Pain, Mild (1-3)) Qty: 30 0RF ferrous sulfate 325 mg (65 mg iron) Tablet 325 mg PO DAILY Qty: 30 0RF docusate sodium 100 mg Capsule 100 mg PO DAILY Qty: 30 0RF ibuprofen 600 mg Tablet 600 mg PO Q6HR PRN (Reason: Pain, Mild (1-3)) Qty: 30 0RF Follow up/Referrals: Kristian Baker [Primary Care Provider] - Davida Carr MD [Physician] - 6 Weeks Diet/Activity/Treatments Diet: Diet as Tolerated Skin/Wound/Dressing Care Report to your healthcare provider any signs of infection, such as:: chills, fever, increased pain and unusual drainage Visit Report/Discharge Packet Instructions: DI for Labor and Delivery, Vaginal Stand Alone Forms: Patient Portal/API, Stroke Signs & Symptoms Discharge Data Primary Care Provider: Kristian Baker Discharges patient from system. Discharge Date/Time: 03/14/23 10:57
[2023-03-14] MEDS: DOCUSATE 100 MG CAPSULE PO (09:42)
[2023-03-14] MEDS: FERROUS SULFATE 325 MG TABLET PO (09:42)
[2023-03-14] MEDS: PRENATAL VIT,CALC/IRON/FOLIC 1 TABLET 1 TAB PO (09:44)
[2023-03-14 10:57] VITALS: BP 108/62
== END 2023-03-14 10:57 | disposition home or self-care (01) | DRG 807 ==
PROVIDERS: Admitting Provider Family Medicine; PCP Family Medicine; Referring Provider Family Medicine; Visit Provider Family Medicine
DX: O36.5930 Maternal care for other known or suspected poor fetal growth, third trimester, not applicable or unspecified (principal); Z37.0 Single live birth; Z3A.38 38 weeks gestation of pregnancy; Z67.40 Type O blood, Rh positive
CPT/HCPCS: 36415; 59050; 59200; 59400; 85025; 86850; 86900; 86901; G0379; J1200